=== PATIENT | female | born 1980 | race Caucasian/White ===

== ENCOUNTER 2016-09-06 17:00 | Emergency (ER) | payer MEDICAID ==
[~2016-09-06] VITALS: Ht 160 cm; Wt 64.6 kg
[~2016-09-06 17:00] MED LIST: /BACIOPOI; ADVAIR200 INHALATION; ALBU17IN2; ALBUT0.05 INHALATION; ALBUTEROL INHALATION; AMIT25TA2 PO; AMO500 PO; ATARAX OR; CRES20TA PO; DULO20CA; EPIP0.3I IM; EPIPENAD INJECTION; FLEXERIL; FLEXERIL PO; MOTRIN800 PO; NEBUMIS2; NEXIUM40 PO; REME15TA OR; SERO200T OR; SUDAFED30 PO; TOPI50TA OR; TRAZ50TA; VENTAER INH; VICODIN PO; [UNRECOGNIZED DRUG - OTHER] SQ
[2016-09-06] MEDS ORDERED: NS 1,000 ML IV ONE (17:45)
[2016-09-06] MEDS ORDERED: ONDANSETRON 4MG/2ML VIAL (J2405) IV ONE (17:45)
[2016-09-06] MEDS ORDERED: MORPHINE 2 MG/ML 1ML SYRINGE IV PRN (17:45)
[2016-09-06 18:15] LABS: BASO % 0.4 % (0.0-1.0); EOS # 0.2 K/mm3 (0.0-0.50); EOS % 2.3 % (0.0-3.0); LARGE UNSTAINED CELL # 0.1 K/mm3 (0.0-0.4); LARGE UNSTAINED CELL % 1.4 % (0.0-4.0); LYMPH % 24.7 % (24.0-44.0); MEAN CORPUSCULAR HEMOGLOBIN 28.7 pg (27.0-33.0); MEAN CORPUSCULAR HGB CONC 33.4 g/dl (32.0-36.5); MEAN CORPUSCULAR VOLUME 86.1 fl (80.0-96.0); MONO # 0.5 K/mm3 (0.0-0.8); MONO % 5.9 % (0.0-5.0); NEUTROPHILS # 5.4 K/mm3 (1.8-7.7); NEUTROPHILS % 65.3 % (36.0-66.0); PLATELET COUNT, AUTOMATED 221 k/mm3 (150-450); RED CELL DISTRIBUTION WIDTH 12.8 % (11.5-14.5); WHITE BLOOD COUNT 8.3 K/mm3 (4.0-10.0)
[2016-09-06 18:34] LABS: ALBUMIN 3.8 GM/DL (3.2-5.2); ALBUMIN/GLOBULIN RATIO 1.03 (1.00-1.93); ALKALINE PHOSPHATASE 67 U/L (45-117); ALT/SGPT 19 U/L (12-78); AMYLASE 222 U/L (25-115); ANION GAP 6 MEQ/L (8-16); AST/SGOT 9 U/L (15-37); BILIRUBIN,DIRECT < 0.1 MG/DL (0.0-0.2); BILIRUBIN,TOTAL 0.5 MG/DL (0.2-1.0); BLOOD UREA NITROGEN 14 MG/DL (7-18); CALCIUM LEVEL 8.8 MG/DL (8.5-10.1); CARBON DIOXIDE LEVEL 26 MEQ/L (21-32); CHLORIDE LEVEL 107 MEQ/L (98-107); CREATININE FOR GFR 0.87 MG/DL (0.55-1.02); GLOMERULAR FILTRATION RATE > 60.0 (>60); GLUCOSE, FASTING 89 MG/DL (70-105); POTASSIUM SERUM 3.9 MEQ/L (3.5-5.1); SODIUM LEVEL 139 MEQ/L (136-145); TOTAL PROTEIN 7.5 GM/DL (6.4-8.2)
[2016-09-06] MEDS ORDERED: diphenhydrAMINE INJ 50MG/ML VIAL (J1200) IV STA (18:57)
[2016-09-06] MEDS ORDERED: fentaNYL 100 MCG/2 ML INJECTION (J3010) IV ONE (19:00)
[2016-09-06] MEDS ORDERED: VoLumen 0.1% SUSPENSION 450ML BOTTLE PO ONE ×2 (20:00→21:00)
[2016-09-06 21:39] VITALS: BP 103/76
--- NOTE | 2016-09-06 23:00 | REPUSA ---
CT of the abdomen and pelvis without contrast Clinical statement: Pain. Technique: Multiple axial CT images were obtained from the base of the lungs to the floor of the pelv is utilizing 5 mm axial slices without administration of contrast. Coronal and sagittal reconstructio ns were also obtained. Comparison: 09/27/2015. Findings: Chest: The visualized lung bases are clear. Abdomen: The kidneys are normal in size bilaterally. There is no evidence of hydronephrosis. There is a 5 mm nonobstructing stone in the left kidney. The liver, spleen, pancreas, and adrenal glands are unremarkable. The aorta demonstrates normal caliber and contour. There is no abdominal lymphadenopath y or ascites. Pelvis: The bowel is unremarkable, with no obstructive or inflammatory changes. The urinary bladder i s within normal limits. There is no pelvic lymphadenopathy or ascites. The other pelvic structures ap pear unremarkable. Bones: There are no suspicious osseous abnormalities seen. Impression: 1. No acute findings. No significant changes prior study. 2. Stable nonobstructing left renal nephrolithiasis. 3. No obstructive or inflammatory bowel changes.
== END 2016-09-06 22:45 | disposition left against medical advice (07) ==
LOC: M ED 17:41
DX: R10.9 Unspecified abdominal pain (principal); F32.9 Major depressive disorder, single episode, unspecified; F17.210 Nicotine dependence, cigarettes, uncomplicated; Z91.041 Radiographic dye allergy status; Z88.5 Allergy status to narcotic agent; Z88.8 Allergy status to other drugs, medicaments and biological substances; Z91.040 Latex allergy status; Z91.030 Bee allergy status; Z88.7 Allergy status to serum and vaccine; R56.9 Unspecified convulsions; J45.909 Unspecified asthma, uncomplicated; F41.9 Anxiety disorder, unspecified
CPT/HCPCS: 36415; 74176; 80048; 80076; 81001; 81025; 82150; 83690; 85025; 96374; 96375; 99283; J1200; J2405; J3010

== ENCOUNTER 2016-09-18 14:27 | Emergency (ER) | payer MEDICAID ==
[~2016-09-18] VITALS: Ht 160 cm; Wt 65.3 kg
[2016-09-18] MEDS ORDERED: ONDANSETRON 4MG/2ML VIAL (J2405) IV ONE (16:00)
[2016-09-18] MEDS ORDERED: MORPHINE 4 MG/ML 1ML SYRINGE IV ONE (16:00)
[2016-09-18] MEDS ORDERED: READI-CAT 2 PO ONE ×2 (16:15→17:15)
[2016-09-18 16:21] LABS: BASO % 0.6 % (0.0-1.0); EOS # 0.1 K/mm3 (0.0-0.50); EOS % 1.3 % (0.0-3.0); LARGE UNSTAINED CELL # 0.2 K/mm3 (0.0-0.4); LARGE UNSTAINED CELL % 2.9 % (0.0-4.0); LYMPH # 1.9 K/mm3 (1.5-4.5); LYMPH % 22.8 % (24.0-44.0); MEAN CORPUSCULAR HEMOGLOBIN 28.7 pg (27.0-33.0); MEAN CORPUSCULAR VOLUME 86.9 fl (80.0-96.0); MONO # 0.3 K/mm3 (0.0-0.8); MONO % 4.3 % (0.0-5.0); NEUTROPHILS # 5.1 K/mm3 (1.8-7.7); NEUTROPHILS % 68.1 % (36.0-66.0); PLATELET COUNT, AUTOMATED 260 k/mm3 (150-450); RED CELL DISTRIBUTION WIDTH 12.5 % (11.5-14.5); WHITE BLOOD COUNT 7.5 K/mm3 (4.0-10.0)
[2016-09-18 16:23] LABS: CONTROL LINE UCG INT CTR LINE PRESENT
[2016-09-18 16:44] LABS: ALBUMIN 3.8 GM/DL (3.2-5.2); ALBUMIN/GLOBULIN RATIO 1.06 (1.00-1.93); ALKALINE PHOSPHATASE 84 U/L (45-117); ALT/SGPT 34 U/L (12-78); AMYLASE 62 U/L (25-115); ANION GAP 8 MEQ/L (8-16); AST/SGOT 16 U/L (15-37); BILIRUBIN,DIRECT 0.1 MG/DL (0.0-0.2); BILIRUBIN,TOTAL 0.6 MG/DL (0.2-1.0); BLOOD UREA NITROGEN 8 MG/DL (7-18); CALCIUM LEVEL 8.8 MG/DL (8.5-10.1); CARBON DIOXIDE LEVEL 26 MEQ/L (21-32); CHLORIDE LEVEL 105 MEQ/L (98-107); CREATININE FOR GFR 0.87 MG/DL (0.55-1.02); GLOMERULAR FILTRATION RATE > 60.0 (>60); GLUCOSE, FASTING 88 MG/DL (70-105); POTASSIUM SERUM 3.6 MEQ/L (3.5-5.1); SODIUM LEVEL 139 MEQ/L (136-145); TOTAL PROTEIN 7.4 GM/DL (6.4-8.2)
[2016-09-18] MEDS ORDERED: KETOROLAC 30 MG/ML VIAL (J1885) IV ONE (17:45)
[2016-09-18] MEDS ORDERED: PERCOCET 5MG/325MG TAB PO ONE (19:30)
[2016-09-18 19:34] VITALS: BP 128/82
--- NOTE | 2016-09-18 19:40 | REPUSA ---
Clinical statement: Left flank pain. Technique: Multiple axial CT images were obtained from the base of the lungs to the floor of the pelvis utilizing 5 mm axial slices without administration of contrast. Coronal and sagittal reconstructions were also obtained. Comparison: 09/06/2016. Findings: Chest: The visualized lung bases are clear. Abdomen: The kidneys are normal in size bilaterally. There is no evidence of hydronephrosis. There is a 5 mm nonobstructing stone in the left kidney. The liver, spleen, pancreas, and adrenal glands are unremarkable. The aorta demonstrates normal caliber and contour. There is no abdominal lymphadenopathy or ascites. Pelvis: The bowel is unremarkable, with no obstructive or inflammatory changes. The urinary bladder is within normal limits. There is no pelvic lymphadenopathy or ascites. The other pelvic structures appear unremarkable. Bones: There are no suspicious osseous abnormalities seen. Impression: 1. No acute findings. No significant changes prior study. 2. Stable nonobstructing 5 mm left renal calculus. 3. No obstructive or inflammatory bowel changes.
== END 2016-09-18 20:14 | disposition home or self-care (01) ==
LOC: M ED 15:14
DX: R10.32 Left lower quadrant pain (principal); R56.9 Unspecified convulsions; F41.9 Anxiety disorder, unspecified; F33.9 Major depressive disorder, recurrent, unspecified; N20.0 Calculus of kidney; Z87.19 Personal history of other diseases of the digestive system; T78.40XA Allergy, unspecified, initial encounter; Z87.440 Personal history of urinary (tract) infections
CPT/HCPCS: 74176; 80048; 80076; 81001; 82150; 83690; 84703; 85025; 96374; 96375; 99282; J1885; J2405

== ENCOUNTER 2016-11-03 17:01 | Inpatient (IN) | payer MEDICAID ==
[~2016-11-03] VITALS: Ht 160 cm; Wt 67.6 kg
[2016-11-03] MEDS ORDERED: diphenhydrAMINE INJ 50MG/ML VIAL (J1200) IM STA (17:07)
[2016-11-03] MEDS ORDERED: TIZA2TA PO (17:10)
[2016-11-03] MEDS ORDERED: METOCLOPRAMIDE INJ 10MG/2ML VIAL (J2765) IM ONE (17:15)
[2016-11-03 17:35] LABS: MEAN CORPUSCULAR HEMOGLOBIN 29.8 pg (27.0-33.0); MEAN CORPUSCULAR VOLUME 87.6 fl (80.0-96.0); RED CELL DISTRIBUTION WIDTH 12.5 % (11.5-14.5); WHITE BLOOD COUNT 6.4 K/mm3 (4.0-10.0)
[2016-11-03 18:14] LABS: CONTROL LINE HCG INT CTR LINE PRESENT
[2016-11-03 18:34] LABS: ALBUMIN 4.1 GM/DL (3.2-5.2); ALBUMIN/GLOBULIN RATIO 1.08 (1.00-1.93); ALKALINE PHOSPHATASE 84 U/L (45-117); ALT/SGPT 15 U/L (12-78); ANION GAP 8 MEQ/L (8-16); AST/SGOT 11 U/L (15-37); BILIRUBIN,DIRECT 0.1 MG/DL (0.0-0.2); BILIRUBIN,TOTAL 0.7 MG/DL (0.2-1.0); BLOOD UREA NITROGEN 17 MG/DL (7-18); CALCIUM LEVEL 8.5 MG/DL (8.5-10.1); CARBON DIOXIDE LEVEL 25 MEQ/L (21-32); CHLORIDE LEVEL 105 MEQ/L (98-107); CREATININE FOR GFR 0.97 MG/DL (0.55-1.02); GLOMERULAR FILTRATION RATE > 60.0 (>60); GLUCOSE, FASTING 83 MG/DL (70-105); POTASSIUM SERUM 3.4 MEQ/L (3.5-5.1); SODIUM LEVEL 138 MEQ/L (136-145); TOTAL PROTEIN 7.9 GM/DL (6.4-8.2)
[2016-11-03 19:36] LABS: METHADONE URINE NEGATIVE (NEGATIVE)
[2016-11-03] MEDS ORDERED: MAALOX 30 ML SUSP *UDC PO PRN (22:30)
[2016-11-03] MEDS ORDERED: MOM 30ML SUSPENSION UDC PO PRN (22:30)
[2016-11-03] MEDS ORDERED: traZODone 50 MG TAB PO PRN (22:30)
[2016-11-03 22:50] VITALS: BP 120/67
[2016-11-03] MEDS: ACETAMINOPHEN TAB 650MG DOSE (2X325MG) PO PRN (23:38)
[2016-11-04 06:00] VITALS: BP_DIAS 115
[2016-11-04] MEDS: ACETAMINOPHEN TAB 650MG DOSE (2X325MG) PO PRN (15:16)
[2016-11-04 18:00] VITALS: BP 125/76
[2016-11-04] MEDS: OLANZapine ORAL DISINTEGRATING TAB 5MG PO PRN ×2 (20:24)
[2016-11-04] MEDS: EXCEDRIN MIGRAINE TABLET PO PRN (20:26)
--- NOTE | 2016-11-04 22:08 | HPE ---
DATE OF ADMISSION: 11/03/2016 DATE OF SERVICE: 11/04/2016 HISTORY OF PRESENT ILLNESS: This is a 35-year-old white woman with a longstanding history of psychiatric hospitalizations who was admitted now with thoughts of suiciding on pills. The patient is really stressed out because it seems that her supplemental security income (SSI) is now under review and that her primary doctor feels that she is able to work. She says she has been feeling suicidal for about a week. She also says she has been out of her medications for about eight months because apparently she moved with her mother at one point, and she says she did not have transportation. She is now living with a friend and she is able to borrow his truck to get to appointments, but she is on a waiting list to start psychiatric treatment again. She feels that she needs her medications again. She complains of anxiety, but she says that it is mostly when she gets upset about something that she will get anxious, and she will break into a sweat. Again, she describes feeling depressed but she denies that she is feeling hopeless or helpless at this point. She did mention another stressor which is that she is hoping to be able to go to court and get visitations with her children who apparently are in the custody of her mother. She said that was the reason moved in with her mother before so that she could be near her children. I did not elicit any hypomanic or manic-like symptoms in this patient. It seems that at some point, she was given a diagnosis of bipolar disorder, but it is not clear where exactly this diagnosis came by. PAST PSYCHIATRIC HISTORY: The patient has had multiple psychiatric hospitalizations; the last one was two years ago after she overdosed at [facility]. Currently she has not been on any medications as I had noted above. FAMILY HISTORY: The patient is not aware of any psychiatric illness in the family. SUBSTANCE ABUSE: She denies any problems with alcohol or drugs. MEDICAL HISTORY: She has a history of migraines. ABUSE HISTORY: I did not elicit any abuse history. MENTAL STATUS EXAMINATION: The patient is alert and oriented times three. Eye contact is fair. Psychomotor activity is decreased. There is no formal thought disorder. She states her mood is depressed and anxious. Affect is full range and appropriate. She is not psychotic. She is denying suicidal ideation now. No homicidal ideation. Concentration fair. Memory intact. Insight and judgment poor. REVIEW OF SYSTEMS: VITAL SIGNS: Blood pressure 155/77, pulse 70, temperature 97.3. APPEARANCE: She does not appear to be in any apparent distress. NEUROMUSCULAR: The patient's gait is normal and there are no involuntary movements noted. All other systems were reviewed and found to be negative. DIAGNOSES: 1. Other specified depressive disorder. 2. Migraine headaches. TREATMENT PLAN: At this point, we will start the patient on some Effexor XR 75 mg every morning. We will also give her Seroquel 50 mg at bedtime. The Seroquel hopefully will help her sleep better because she says she has difficulty sleeping because she has racing thoughts. We will continue to monitor her for continued resolution of suicidal ideation, and the plan will be to discharge the patient with appropriate followup when stable.
[2016-11-04] MEDS: QUEtiapine FUMARATE 50 MG TAB PO SCH (23:02)
--- NOTE | 2016-11-05 04:39 | HPE ---
DATE OF ADMISSION: 11/03/2016 HISTORY OF PRESENT ILLNESS: Please refer to psychiatric history and evaluation for further details on this admission. This examination and history is intended for medical issues, which may need treatment, followup or consult on this 35-year-old female. PRIMARY CARE PROVIDER: VIGNESH Koehler, [facility]. ALLERGIES: ATARAX, CODEINE, LEXAPRO, CELEXA, IODINE, LASIX, TETANUS TOXOID, CITALOPRAM, CONTRAST MEDIA, and she is allergic to bees. SOCIAL HISTORY: She lives with a friend. She has three children. Two boys live with her mother and one daughter lives with the daughter's father. She does not smoke cigarettes. She does not drink alcohol. She does not use recreational drugs. HOME MEDICATIONS: - tizanidine 2 mg by mouth three times a day as needed for muscle spasm PAST MEDICAL HISTORY: 1. Macular degeneration. 2. Left eye retinal disease. She wears glasses. 3. History of asthma. 4. History of pancreatitis. 5. History of migraines. 6. She is also being worked up by her primary care provider for an enlarged liver. PAST SURGICAL HISTORY: 1. Foot surgery on the right times two, on the left times five. 2. Laser surgery to left eye. 3. Cholecystectomy. 4. Tubal ligation. FAMILY HISTORY: Noncontributory. LABORATORY STUDIES: CBC was normal. Sodium 148, potassium 3.4, chloride 105, CO2 25, BUN 17, creatinine 0.97. Toxicology was negative except for a salicylate level of 5.7. REVIEW OF SYSTEMS: 10-system review was done. Her main complaint was of headache. Excedrin Migraine has been ordered. PHYSICAL EXAMINATION: 35-year-old cooperative female. Height 63 inches, weight 62.8 kg, body mass index (BMI) 24.5. Blood pressure 120/67, pulse 92, respirations 16, temperature 98.4. The patient is alert and oriented times three. Pupils equal and react to light. Extraocular muscles intact. Cornea and sclerae clear. Conjunctivae were normal. No facial asymmetry. Pharynx, tongue and gums pink and moist. Tongue is midline. Neck is supple without lymphadenopathy. No thyromegaly, no goiter. Carotids 2+ without bruit. Chest clear to auscultation without wheeze or retraction. Heart is regular. Abdomen is benign. Bowel sounds positive. Genitourinary/rectal: Not done. Extremities show equal strength, full range of motion. No cyanosis, clubbing or edema. Peripheral pulses equal and palpable bilaterally. Skin is warm and dry. IMPRESSION/PLAN: 1. Psychiatric plan per psychiatry. 2. History of asthma, stable. 3. Per patient, enlarged liver, is following with VIGNESH Koehler, at [facility], recommended to keep followup. Liver function tests (LFTs) were normal. 4. Slightly low potassium. Recheck in the morning. ADDENDUM: As I was dictating this, the nurses came up and told me that after she saw me, she had been rubbing the backs of her hands and arms and I assessed them. Slightly reddened area on the back of each hand and on the lower forearm. Nothing open. No abrasion noted.
[2016-11-05 06:29] VITALS: BP 110/55
[2016-11-05] MEDS: VENLAFAXINE **XR** 75MG CAPSULE PO SCH (08:07)
[2016-11-05] MEDS: EXCEDRIN MIGRAINE TABLET PO PRN (09:23)
[2016-11-05] MEDS: OLANZapine ORAL DISINTEGRATING TAB 5MG PO PRN ×2 (09:23→21:05)
[2016-11-05 09:43] LABS: ANION GAP 7 MEQ/L (8-16); BLOOD UREA NITROGEN 12 MG/DL (7-18); CARBON DIOXIDE LEVEL 27 MEQ/L (21-32); CHLORIDE LEVEL 109 MEQ/L (98-107); CREATININE FOR GFR 0.87 MG/DL (0.55-1.02); GLOMERULAR FILTRATION RATE > 60.0 (>60); GLUCOSE, FASTING 81 MG/DL (70-105); POTASSIUM SERUM 3.7 MEQ/L (3.5-5.1); SODIUM LEVEL 143 MEQ/L (136-145)
[2016-11-05 18:00] VITALS: BP 104/65
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
[2016-11-05] MEDS: ACETAMINOPHEN TAB 650MG DOSE (2X325MG) PO PRN (20:52)
[2016-11-05] MEDS: QUEtiapine FUMARATE 50 MG TAB PO SCH (21:04)
[2016-11-05] MEDS: RAMELTEON 8 MG TAB (ROZEREM) PO SCH (21:25)
[2016-11-06 06:50] VITALS: BP 94/56
[2016-11-06] MEDS: OLANZapine ORAL DISINTEGRATING TAB 5MG PO PRN ×2 (08:01→21:20)
[2016-11-06] MEDS: VENLAFAXINE **XR** 75MG CAPSULE PO SCH (08:01)
[2016-11-06 18:00] VITALS: BP 126/68
[2016-11-06] MEDS: EXCEDRIN MIGRAINE TABLET PO PRN (18:27)
--- NOTE | 2016-11-06 20:47 | IPN ---
DATE: 11/06/2016 35-year-old female with a history of unspecified depressive disorder, who was admitted to the inpatient mental health unit on 11/03/2016. The patient reported feeling tired because she is adjusting to being on medications again. The staff reported that she slept all day and did not attend any groups. MENTAL STATUS EXAMINATION: The patient was seen dressed in hospital clothes, disheveled, sleepy with good eye contact, slightly uncooperative with the interview. She was alert and oriented times three. Her mood and affect were irritable, angry, depressed. Her speech was sparse but not tangential and not circumstantial. Her thought process is intact. Her thought content is about the problems that she has with her mother over the custody of her children. She denies suicidal ideation, denied homicidal ideation, and denied auditory and visual hallucinations. She has not been seen responding to internal stimuli. She denies delusional thoughts, but certainly she is a little hypervigilant. Her attention and concentration are fair. Her recent and remote memory are intact. Her fund of knowledge is poor. Her insight and judgment are poor. Her impulse control is fair. DIAGNOSES: 1. Unspecified depressive disorder. 2. Migraine headaches. MANAGEMENT PLAN: The patient will continue on current medications on olanzapine 5 mg every four hours as needed for anxiety or agitation, Seroquel 50 mg by mouth, Rozerem 8 mg by mouth at night for sleep. She is currently on venlafaxine and it was increased to 150 mg by mouth in the morning this morning. The patient has very low energy levels and hopefully with the combination of Seroquel and venlafaxine she will feel better, less depressed, less irritable. Her irritability is most likely due to stress and depression. Venlafaxine was increased today to 150 mg and hopefully it will be able to be increased to 300 mg before she gets discharged. We will continue to monitor for behavioral and mood swings/mood changes. Will follow up. MERVAT
[2016-11-06] MEDS: QUEtiapine FUMARATE 50 MG TAB PO SCH (21:20)
[2016-11-06] MEDS: RAMELTEON 8 MG TAB (ROZEREM) PO SCH (22:11)
[2016-11-06] MEDS ORDERED: diphenhydrAMINE 25 MG CAP PO ONE (22:30)
[2016-11-07 06:02] VITALS: BP 129/80
[2016-11-07] MEDS: OLANZapine ORAL DISINTEGRATING TAB 5MG PO PRN ×2 (06:39→20:54)
[2016-11-07] MEDS: VENLAFAXINE **XR** 75MG CAPSULE PO SCH (08:01)
[2016-11-07] MEDS: MUPIROCIN 2% OINT 22 GM TUBE TOP SCH ×2 (11:37→21:00)
[2016-11-07] MEDS: EXCEDRIN MIGRAINE TABLET PO PRN (13:42)
[2016-11-07 18:00] VITALS: BP 94/50
[2016-11-07] MEDS: SUMAtriptan SUCCINATE 25 MG TAB PO PRN ×2 (18:46→20:53)
--- NOTE | 2016-11-07 19:22 | MHIPNPDOC ---
[facility] Progress Note Progress Note DATE OF SERVICE: 11/07/16 INTERVAL HISTORY: Medication Side effects: Denies medication side effects Behavior: Has refused to attend groups, blames it and migraine headaches and because she doesn't get to go to the group she likes, because she has been told that her name is on the list and she has to go to the "talk group" instead of the group for people get to paint and draw. Isolated to her room, not engaging, not interacting with peers or staff Group Attendance: She has not been attending groups has been isolated to her room, not interacting with peers or staff Psychiatric Symptom change: She continues to be irritable. VITAL SIGNS: See below. NEW TEST RESULTS: See below CURRENT MEDICATIONS: See below. MENTAL STATUS EXAMINATION: General: Alert, slightly uncooperative, guarded, good eye contact Speech: And normal Thought processes: Intact Thought content: She is persevering about her migraine headaches and complaining because they gave her Imitrex and she states this medication doesn' t work for her. Yesterday she told this functional tester typewriters that they have given her a medication that worked well for her migraine headaches but she couldn't recall his name and she refused to receive any other medication because she said none of the previous medications including Imitrex have worked for her. Today she blames it on migraine headaches not been able to get up from bed, attend groups and interact with people at the inpatient mental health unit. Abstract reasoning, and computation: Poor. Description of associations: Not loose Description of abnormal or psychotic thoughts: She is not delusional, she is not responding to internal stimuli, she denies auditory and visual hallucinations, denies suicidal and homicidal ideation. Judgment: Poor Insight: Poor Orientation: Oriented 3 Recent and remote memory: Intact Attention span and concentration: Fair Fund of knowledge: Poor Mood: Irritable Affect: Irritable, angry DIAGNOSES: 1. Unspecified depressive disorder. 2. Rule out personality disorder. 3. Rule out intellectual disability ASSESSMENT: Patient continues to be irritable, anxious and depressed. Seroquel was increased today to 50 mg by mouth twice a day and will make other medication adjustments to help her overcome her symptoms. She was educated about the importance of attending groups and about sleep hygiene. She won't be able to fall asleep at night if she sleeps during the day. Her judgment and insight are very limited. MANAGEMENT PLAN: Medications: Venlafaxine 150 mg by mouth twice a day, Seroquel 50 mg by mouth twice a day, Rozerem 8 mg by mouth daily at bedtime, Zyprexa 5 mg every 4 hours when necessary for anxiety and agitation Psychotherapy: Will continue to encourage to attend groups Social: Hasn't been interactive with staff or peers Misc: -- Disposition: She needs to stay at the inpatient mental health unit until she becomes less depressed and able to function properly. She is not suicidal, she is not a threat to herself or others. TIME SPENT: minutes. Vital Signs Vital Signs Date Time Temp Pulse Resp B/P (MAP) Pulse Ox O2 Delivery O2 Flow Rate FiO2 11/07/16 06:02 97.7 82 18 129/80 (96) 11/04/16 06:00 18 Current Medications Current Medications Acetaminophen (Tylenol Tab) 650 mg Q6HP PRN PO HEADACHE or DISCOMFORT Last administered on 11/05/16 20:52; Start 11/03/16 at 22:30; Stop 12/03/16 at 22:29 Acetaminophen/ Aspirin/Caffeine (Excedrin Migraine) 1 ea Q4HP PRN PO HEADACHE Last administered on 11/07/16 13:42; Start 11/04/16 at 19:45; Stop 12/04/16 at 19: 44 Al Hydrox/Mg Hydrox/Simethicone (Mylanta) 30 ml Q4HP PRN PO HEARTBURN/ INDIGESTION; Start 11/03/16 at 22:30; Stop 12/03/16 at 22:29 Diphenhydramine HCl (Benadryl) 50 mg STAT STAT IM Last administered on 17:39; Start 11/03/16 at 17:07; Stop 11/03/16 at 17:08; Status DC Home Med (Med Rec Complete!) ASDIRECTED XX ; Start 11/03/16 at 18:15; Stop at 18:17; Status DC Magnesium Hydroxide (Milk Of Magnesia) 30 ml DAILYPRN PRN PO CONSTIPATION; Start 11/03/16 at 22:30; Stop 12/03/16 at 22:29 Mupirocin (Bactroban 2% Ointment) 1 dose BID TOP Last administered on 11/07/16 11:37; Start 11/07/16 at 09:00; Stop 12/07/16 at 08:59 Olanzapine (ZyPREXA ZYDIS) 5 mg Q4HP PRN PO ANXIETY/AGITATION Last administered on 11/07/16 06:39; Start 11/03/16 at 23:00; Stop 12/03/16 at 22:59 Quetiapine Fumarate (SEROquel) 50 mg BID PO ; Start 11/07/16 at 21:00; Stop at 20:59; Status UNV Quetiapine Fumarate (SEROquel) 50 mg QHS PO Last administered on 11/06/16 21:20 ; Start 11/04/16 at 21:00; Stop 11/07/16 at 19:05; Status DC Ramelteon (Rozerem) 8 mg QHS PO Last administered on 11/06/16 22:11; Start 11/05 at 21:00; Stop 12/05/16 at 20:59 Sumatriptan Succinate (Imitrex) 50 mg Q2HP PRN PO HEADACHE Last administered on 11/07/16 18:46; Start 11/07/16 at 18:15; Stop 12/07/16 at 18:14 Trazodone HCl (Desyrel) 50 mg QHSP PRN PO INSOMNIA Last administered on 22:52; Start 11/03/16 at 22:30; Stop 11/05/16 at 16:16; Status DC Venlafaxine HCl (Effexor Xr) 75 mg QAM PO Last administered on 11/06/16 08: 01; Start 11/05/16 at 09:00; Stop 11/06/16 at 16:15; Status DC Venlafaxine HCl (Effexor Xr) 150 mg QAM PO Last administered on 11/07/16 08 :01; Start 11/07/16 at 09:00; Stop 12/07/16 at 08:59 Allergies Coded Allergies: Aripiprazole (Verified Allergy, Unknown, 09/04/12) Bee Venom (Verified Allergy, Unknown, BEE STINGS, 09/04/12) Citalopram (Verified Allergy, Unknown, 09/04/12) Codeine (Verified Allergy, Unknown, PATIENT STATES SHE TAKES PERCOCET WITHOUT PROBLEM, 09/04/12) Contrast Media (Verified Allergy, Unknown, IODINE CONTRAST=HIVES, 06/08/10) Escitalopram (Verified Allergy, Unknown, HIVES AND THROAT CONSTRICTS, ) Hydroxyzine (Verified Allergy, Unknown, 09/04/12) Iodine (Verified Allergy, Unknown, HIVES AND THROAT CONSTRICTS, 09/04/12) Latex (Verified Allergy, Unknown, HIVES AND THROAT CONSTRICTS, 09/04/12) Paroxetine (Verified Allergy, Unknown, 09/04/12) Penicillins (Unverified Allergy, Unknown, 08/04/15) Risperidone (Verified Allergy, Unknown, 09/04/12) Tetanus Toxoid (Verified Allergy, Unknown, HIVES AND THROAT CONSTRICTS, 09/04/12) Valproic Acid (Verified Allergy, Unknown, 09/04/12) Zolpidem (Verified Allergy, Unknown, 09/04/12) HERNAN MATOS MD Nov 07, 2016 19:21
[2016-11-07] MEDS: QUEtiapine FUMARATE 50 MG TAB PO SCH (20:53)
[2016-11-07] MEDS ORDERED: QUEtiapine FUMARATE 25 MG TAB PO SCH (21:00)
[2016-11-07] MEDS: RAMELTEON 8 MG TAB (ROZEREM) PO SCH (21:43)
[2016-11-08] MEDS: SUMAtriptan SUCCINATE 25 MG TAB PO PRN ×3 (04:48→21:18)
[2016-11-08 06:30] VITALS: BP 111/77
[2016-11-08] MEDS: QUEtiapine FUMARATE 50 MG TAB PO SCH ×2 (08:22→21:18)
[2016-11-08] MEDS: VENLAFAXINE **XR** 75MG CAPSULE PO SCH ×2 (08:22→21:17)
[2016-11-08] MEDS: MUPIROCIN 2% OINT 22 GM TUBE TOP SCH ×2 (08:22→21:00)
[2016-11-08] MEDS: OLANZapine ORAL DISINTEGRATING TAB 5MG PO PRN ×3 (08:24→19:18)
[2016-11-08] MEDS ORDERED: VENL75CA PO (13:03)
[2016-11-08] MEDS ORDERED: QUET5TAB PO (13:03)
[2016-11-08] MEDS ORDERED: OLAN5ZYD PO (13:03)
--- NOTE | 2016-11-08 13:38 | MHIPNPDOC ---
[facility] Progress Note Progress Note DATE OF SERVICE: 11/08/16 INTERVAL HISTORY: Medication Side effects: Daytime sleepiness caused by having her take Seroquel during the day. She requested to have the whole dose administered at bedtime. Behavior: Continues to be reluctant to attend groups, isolated to her room, not interacting with peers or staff Group Attendance: She hasn't been attending groups Psychiatric Symptom change: Her mood and affect are better today. She she has been able to laugh, joke and smile. She is not irritable anymore. VITAL SIGNS: See below. NEW TEST RESULTS: See below CURRENT MEDICATIONS: See below. MENTAL STATUS EXAMINATION: General: Alert, cooperative, good eye contact. Speech: Normal Thought processes: Intact Thought content: Negative for homicidal ideation, negative for suicidal ideation , negative for delusions negative for depressive thoughts and negative for auditory or visual hallucinations, negative for obsessions and compulsions Abstract reasoning, and computation: Fair Description of associations: Not loose Description of abnormal or psychotic thoughts: Denies suicidal ideation, denies homicidal ideation, denies auditory and visual hallucinations, denies delusional thoughts. Judgment: Improving Insight: Improving Orientation: Oriented 3 Recent and remote memory: Intact Attention span and concentration: Fair Fund of knowledge: Poor Mood: Brighter Affect: Euthymic DIAGNOSES: 1. Major depressive disorder, recurrent, moderate ASSESSMENT: Patient shows she has improved since she came in. Initially she was extremely irritable with angry mood. Today she was seen more pleasant, more engaging, happy. If she continues to be stable she will be discharged tomorrow. She wont be discharged on Imitrex because she has stated that this medication is not helping her with her migraine headaches and that she had received that in the past and it never helped her, besides it it could result in an undesirable interaction with her antidepressant. MANAGEMENT PLAN: Medications: Venlafaxine 150 mg by mouth twice a day, Seroquel 150 mg by mouth daily at bedtime. She continues to be on Zyprexa 5 mg by mouth daily at bedtime when necessary for anxiety and agitation. Psychotherapy: She doesn't want to attend groups Social: She has not been sociable or interactive with peers or staff Misc: --- Disposition: She will be discharged home tomorrow if she continues to be stable. TIME SPENT: 25 minutes. Vital Signs Vital Signs Date Time Temp Pulse Resp B/P (MAP) Pulse Ox O2 Delivery O2 Flow Rate FiO2 11/08/16 06:30 97.6 111 22 111/77 (88) 11/04/16 06:00 18 Current Medications Current Medications Acetaminophen (Tylenol Tab) 650 mg Q6HP PRN PO HEADACHE or DISCOMFORT Last administered on 11/05/16 20:52; Start 11/03/16 at 22:30; Stop 12/03/16 at 22:29 Acetaminophen/ Aspirin/Caffeine (Excedrin Migraine) 1 ea Q4HP PRN PO HEADACHE Last administered on 11/07/16 13:42; Start 11/04/16 at 19:45; Stop 12/04/16 at 19: 44 Al Hydrox/Mg Hydrox/Simethicone (Mylanta) 30 ml Q4HP PRN PO HEARTBURN/ INDIGESTION; Start 11/03/16 at 22:30; Stop 12/03/16 at 22:29 Diphenhydramine HCl (Benadryl) 50 mg STAT STAT IM Last administered on 17:39; Start 11/03/16 at 17:07; Stop 11/03/16 at 17:08; Status DC Home Med (Med Rec Complete!) ASDIRECTED XX ; Start 11/03/16 at 18:15; Stop at 18:17; Status DC Magnesium Hydroxide (Milk Of Magnesia) 30 ml DAILYPRN PRN PO CONSTIPATION; Start 11/03/16 at 22:30; Stop 12/03/16 at 22:29 Mupirocin (Bactroban 2% Ointment) 1 dose BID TOP Last administered on 11/08/16 08:22; Start 11/07/16 at 09:00; Stop 12/07/16 at 08:59 Olanzapine (ZyPREXA ZYDIS) 5 mg Q4HP PRN PO ANXIETY/AGITATION Last administered on 11/08/16 08:24; Start 11/03/16 at 23:00; Stop 12/03/16 at 22:59 Quetiapine Fumarate (SEROquel) 50 mg BID PO Last administered on 11/08/16 08:22 ; Start 11/07/16 at 21:00; Stop 11/08/16 at 11:52; Status DC Quetiapine Fumarate (SEROquel) 50 mg QHS PO Last administered on 11/06/16 21:20 ; Start 11/04/16 at 21:00; Stop 11/07/16 at 19:05; Status DC Quetiapine Fumarate (SEROquel) 75 mg QHS PO Last administered on 11/07/16 20:51 ; Start 11/07/16 at 21:00; Stop 11/08/16 at 11:54; Status DC Quetiapine Fumarate (SEROquel) 150 mg QHS PO ; Start 11/08/16 at 21:00; Stop 12/08 at 20:59 Ramelteon (Rozerem) 8 mg QHS PO Last administered on 11/07/16 21:43; Start 11/05 at 21:00; Stop 11/08/16 at 11:51; Status DC Sumatriptan Succinate (Imitrex) 50 mg Q2HP PRN PO HEADACHE Last administered on 11/08/16 08:22; Start 11/07/16 at 18:15; Stop 12/07/16 at 18:14 Trazodone HCl (Desyrel) 50 mg QHSP PRN PO INSOMNIA Last administered on 22:52; Start 11/03/16 at 22:30; Stop 11/05/16 at 16:16; Status DC Venlafaxine HCl (Effexor Xr) 75 mg QAM PO Last administered on 11/06/16 08: 01; Start 11/05/16 at 09:00; Stop 11/06/16 at 16:15; Status DC Venlafaxine HCl (Effexor Xr) 150 mg BID PO ; Start 11/08/16 at 21:00; Stop at 08:59; Status UNV Venlafaxine HCl (Effexor Xr) 150 mg QAM PO Last administered on 11/08/16 08 :22; Start 11/07/16 at 09:00; Stop 11/08/16 at 11:55; Status DC Allergies Coded Allergies: Aripiprazole (Verified Allergy, Unknown, 09/04/12) Bee Venom (Verified Allergy, Unknown, BEE STINGS, 09/04/12) Citalopram (Verified Allergy, Unknown, 09/04/12) Codeine (Verified Allergy, Unknown, PATIENT STATES SHE TAKES PERCOCET WITHOUT PROBLEM, 09/04/12) Contrast Media (Verified Allergy, Unknown, IODINE CONTRAST=HIVES, 06/08/10) Escitalopram (Verified Allergy, Unknown, HIVES AND THROAT CONSTRICTS, ) Hydroxyzine (Verified Allergy, Unknown, 09/04/12) Iodine (Verified Allergy, Unknown, HIVES AND THROAT CONSTRICTS, 09/04/12) Latex (Verified Allergy, Unknown, HIVES AND THROAT CONSTRICTS, 09/04/12) Paroxetine (Verified Allergy, Unknown, 09/04/12) Penicillins (Unverified Allergy, Unknown, 08/04/15) Risperidone (Verified Allergy, Unknown, 09/04/12) Tetanus Toxoid (Verified Allergy, Unknown, HIVES AND THROAT CONSTRICTS, 09/04/12) Valproic Acid (Verified Allergy, Unknown, 09/04/12) Zolpidem (Verified Allergy, Unknown, 09/04/12) HERNAN MATOS MD Nov 08, 2016 13:38
[2016-11-08] MEDS: EXCEDRIN MIGRAINE TABLET PO PRN (14:45)
[2016-11-08 18:26] VITALS: BP 120/78
[2016-11-08] MEDS ORDERED: HALOPERIDOL 10 MG TAB PO STA (21:40)
[2016-11-08] MEDS ORDERED: diphenhydrAMINE 50 MG CAP PO STA (21:40)
[2016-11-08] MEDS ORDERED: LORazepam 2 MG TAB PO STA (21:40)
[2016-11-09 07:14] VITALS: BP 112/55
[2016-11-09] MEDS: VENLAFAXINE **XR** 75MG CAPSULE PO SCH ×2 (09:29→22:07)
[2016-11-09] MEDS: MUPIROCIN 2% OINT 22 GM TUBE TOP SCH ×2 (09:31→21:00)
[2016-11-09] MEDS: OLANZapine ORAL DISINTEGRATING TAB 5MG PO PRN ×3 (09:56→19:04)
[2016-11-09] MEDS: SUMAtriptan SUCCINATE 25 MG TAB PO PRN ×2 (12:14→14:39)
[2016-11-09 18:00] VITALS: BP 129/80
[2016-11-09] MEDS: QUEtiapine FUMARATE 50 MG TAB PO SCH (22:07)
--- NOTE | 2016-11-09 22:42 | IPN ---
DATE: 11/09/2016 Evaluated 35-year-old female with history of major depressive disorder who was admitted last weekend. The patient reported on admission that she has been without her medications for a long time and wanted to start her treatment again and get stabilized, because she felt depressed. She stated that she was suicidal over several problems that she has been having with her mother, because her mother has the custody of her children. The patient also reported being very stressed out, because her supplemental security income (SSI) currently under review by her primary care provider, who has suggested to her that she should go back to work. The patient has been taking her current medications. Those were the medications that she was with before she admitted and that she had responded well in the past. Those are, venlafaxine 150 mg by mouth twice a day, quetiapine, or Seroquel, 150 mg by mouth at bedtime. She is also taking olanzapine Zydis 5 mg by mouth every 4 hours as needed for anxiety and agitation. Today, the patient reported that she has felt very stressed out yesterday, because she had a telephone conversation with her mother, and she became very angry. For that reason, she started hurting herself, scratching her arms and knuckles until she bled. The patient also said to this director underwriter sales yesterday that she did not want to leave, that she wanted to stay over the weekend, so it is suspected that the patient was afraid of leaving the inpatient mental health unit. Perhaps she was afraid of being alone, or perhaps she was afraid of getting into an argument with relatives, most likely her mother. 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 That is what she likes to do, and it is not a stable kind of work. Her income is very limited, and she has difficulties seeing her children and struggling with financial problems. She was told that because she was unstable, she was going to remain at the inpatient mental health unit, but she was told that she has to attend groups, because during the last couple of days, since her admission, she remains in her room without going to groups. After she heard this, then she kept telling staff that she was leaving today. She was told once again that she was not going to be leaving, because it is safer for her to stay 2 more days, and make sure that when she is discharged on Saturday, she is going to be fine. MENTAL STATUS EXAMINATION: Her speech sparse, not fluent. She was seen with better hygiene and better eye contact compared to when she was admitted. Her language skills are limited. Her thought process is irrational. Her thought content is redundant about the problems that she has with her mother, because mother does not let her visit her children. Her abstract reasoning and computation are poor. Description of associations: She has no loosening of associations. Description of abnormal or psychotic thoughts: She denies suicidal ideation. Denies homicidal ideation. Denies auditory and visual hallucinations and denies persecutory or paranoid delusions, but she does not seem to be able to function in society, because her thoughts are not mature enough, and so is her attitude. She acts in an immature way. Her judgment is poor. Her insight is poor. She is oriented times three. Her recent and remote memory is fair. Her attention span and concentration are limited. Her language is fair. Fund of knowledge is poor. Her mood is anxious, and her affect is anxious, congruent to mood. DIAGNOSES: 1. Major depressive disorder, recurrent. 2. Intellectual disability, mild. ASSESSMENT: The patient needs to be stable to be able to be discharged from the inpatient mental health unit. If she continues to comply with medications and she is observed in a better mood and affect with better judgment and insight, she will be discharged on Saturday. She will continue on current medications. TIME SPENT: 20 minutes.
[2016-11-10] MEDS: EXCEDRIN MIGRAINE TABLET PO PRN (03:27)
[2016-11-10] MEDS: SUMAtriptan SUCCINATE 25 MG TAB PO PRN ×3 (03:29→17:59)
[2016-11-10 06:00] VITALS: BP 101/50
[2016-11-10] MEDS: OLANZapine ORAL DISINTEGRATING TAB 5MG PO PRN ×3 (06:03→20:11)
[2016-11-10 08:03] VITALS: BP 133/91
[2016-11-10] MEDS: MUPIROCIN 2% OINT 22 GM TUBE TOP SCH ×2 (08:12→21:16)
[2016-11-10] MEDS: VENLAFAXINE **XR** 75MG CAPSULE PO SCH ×2 (08:12→21:15)
[2016-11-10] MEDS: ACETAMINOPHEN TAB 650MG DOSE (2X325MG) PO PRN (08:44)
[2016-11-10] MEDS ORDERED: diphenhydrAMINE 50 MG CAP PO ONE (10:45)
[2016-11-10] MEDS ORDERED: HALOPERIDOL 2 MG TAB PO ONE (11:00)
[2016-11-10 12:33] VITALS: BP 131/87
[2016-11-10 18:00] VITALS: BP 106/68
[2016-11-10 20:54] VITALS: BP 119/72
[2016-11-10] MEDS: QUEtiapine FUMARATE 50 MG TAB PO SCH (21:15)
[2016-11-10] MEDS ORDERED: LORazepam 0.5 MG TAB PO ONE (23:00)
[2016-11-11 06:00] VITALS: BP 97/66
[2016-11-11] MEDS: OLANZapine ORAL DISINTEGRATING TAB 5MG PO PRN ×3 (08:15→20:58)
[2016-11-11] MEDS: VENLAFAXINE **XR** 75MG CAPSULE PO SCH ×2 (08:15→20:58)
[2016-11-11] MEDS: SUMAtriptan SUCCINATE 25 MG TAB PO PRN ×3 (08:15→20:59)
[2016-11-11 08:19] VITALS: BP 109/64
[2016-11-11] MEDS: MUPIROCIN 2% OINT 22 GM TUBE TOP SCH ×2 (09:00→21:00)
[2016-11-11 09:55] VITALS: BP 119/68
[2016-11-11] MEDS ORDERED: HALOPERIDOL 2 MG TAB PO ONE (11:00)
[2016-11-11 14:10] VITALS: BP 128/78
[2016-11-11] MEDS ORDERED: LORazepam 0.5 MG TAB PO ONE ×2 (16:00→21:45)
[2016-11-11 18:00] VITALS: BP 121/68
[2016-11-11 18:02] VITALS: BP 111/72
[2016-11-11] MEDS: QUEtiapine FUMARATE 50 MG TAB PO SCH (20:58)
[2016-11-12 06:13] VITALS: BP 96/55
[2016-11-12] MEDS: OLANZapine ORAL DISINTEGRATING TAB 5MG PO PRN (08:22)
[2016-11-12] MEDS: MUPIROCIN 2% OINT 22 GM TUBE TOP SCH (08:23)
[2016-11-12] MEDS: VENLAFAXINE **XR** 75MG CAPSULE PO SCH (08:23)
[2016-11-12] MEDS: SUMAtriptan SUCCINATE 25 MG TAB PO PRN (08:44)
--- NOTE | 2016-11-12 14:50 | MHDSPDOC ---
[facility] Discharge Summary Discharge Summary DATE OF ADMISSION: Nov 03, 2016 at 19:21 DATE OF DISCHARGE: Nov 12, 2016 at 11:00 DISCHARGE DIAGNOSES: 1. Major Depressive disorder, moderate 2. Intellectual disability 3. Borderline Personality Traits REASON FOR ADMISSION: Patient came to the emergency room because she felt suicidal and had been scratching up her arms and hands until they bled. She reported feeling upset with her mother because she has custody of her children and she has not been able to see them. She also said her Outpatient Provider told her that her SSI was under review because he thought she could work and this contributed to stress her out. She also reported she had been out of her medications for 8 months and she wanted to get back on them. CONSULTANTS INVOLVED: None TREATMENT AND PROGRESS ON THE UNIT : The patient started using her previous medications, Venlafaxine 150 mgs. PO BID and Trazodone 50 mgs. PO QHS for sleep. She also took Zyprexa 5 mgs. PO q4hrs PRN for anxiety/agitation. After six days of being on medications, her mood and affect improved. she was told she was going to be discharged but she became too stressed out because of this ans she started hurting herself again by scratching her arms and hands. The discharge was cancelled and she was kept over the weekend. She kept hurting herself, because she has to go to Court next Saturday and she couldn't cope with stress other than with medications. She denied suicidal and homicidal ideation, denied hallucinations and denied delusional thoughts. She was offered the possibility of going to [place], because this typewriter assembly and parts inspector and Costume Maker explained to her that being on day 10 of hospitalization, she probably would need a higher level of care and longer hospitalization and this couldn't be done here, but she could go to [place]. She declined. HOSPITAL COURSE: As above DISCHARGE ASSESSMENT: Pt. is not in danger to self or others. she is not suicidal or homicidal. She's not psychotic. She can de discharged. She will go to her friend's house and he already knows she's been discharged. He has not voiced concerns. MENTAL STATUS EXAMINATION ON DISCHARGE: Patient is a 36-year old female, who is alert, guarded, with good eye contact, good hygiene, looking older than her stated age. Speech is Normal. Language skills are Fair. Thought processes including: Intact. Thought content: Perseveres about the ongoing problem she has with mother regarding her children's custody. Abstract reasoning, and computation: Limited. Description of associations: Not loose. Description of abnormal or psychotic thoughts: Not selusional, not having auditory or visual hallucinations, not homicidal and not suicidal. Judgment: Improved. Insight: Improved. Orientation to Oriented x 3. Recent and remote memory: Intact. Attention span and concentration: Fair. Language: Normal. Fund of knowledge: Limited. Mood: "I'm O.K. I'll go home". Affect: Euthymic. MEDICATIONS ON DISCHARGE: - Venlafaxine 150 mgs. Po BID for depression and anxiety.. - Seroquel 150 mgs. PO QHS - Zyprexa 5 mgs. Q4HPRN for anxiety/agitation. PLAN/FOLLOWUP ARRANGEMENTS: Pt. will f/u as an outpatient at the [facility] clinic. The amount of time spent in the coordination of care for this patient was approximately 20 minutes. Vital Signs/I&Os Vital Signs Date Time Temp Pulse Resp B/P (MAP) Pulse Ox O2 Delivery O2 Flow Rate FiO2 11/12/16 06:13 98.2 78 18 96/55 (69) 11/10/16 20:54 98 Room Air Medications Scheduled Quetiapine Fumerate (Quetiapine Fumarate) 50 Mg Tab, 150 MG PO QHS for MOOD/ INSOMNIA, #21 Venlafaxine HCl (Venlafaxine HCl ER) 75 Mg Cap, 150 MG PO BID for MOOD, #28 Scheduled PRN Olanzapine (Olanzapine Odt) 5 Mg Tab, 5 MG PO Q4HP PRN for ANXIETY/AGITATION, # 20 Tizanidine HCl (Tizanidine HCl) 2 Mg Tab, 2 MG PO TID PRN for MUSCLE SPASMS, ( Reported) Allergies Coded Allergies: Aripiprazole (Verified Allergy, Unknown, 09/04/12) Bee Venom (Verified Allergy, Unknown, BEE STINGS, 09/04/12) Citalopram (Verified Allergy, Unknown, 09/04/12) Codeine (Verified Allergy, Unknown, PATIENT STATES SHE TAKES PERCOCET WITHOUT PROBLEM, 09/04/12) Contrast Media (Verified Allergy, Unknown, IODINE CONTRAST=HIVES, 06/08/10) Escitalopram (Verified Allergy, Unknown, HIVES AND THROAT CONSTRICTS, ) Hydroxyzine (Verified Allergy, Unknown, 09/04/12) Iodine (Verified Allergy, Unknown, HIVES AND THROAT CONSTRICTS, 09/04/12) Latex (Verified Allergy, Unknown, HIVES AND THROAT CONSTRICTS, 09/04/12) Paroxetine (Verified Allergy, Unknown, 09/04/12) Penicillins (Unverified Allergy, Unknown, 08/04/15) Risperidone (Verified Allergy, Unknown, 09/04/12) Tetanus Toxoid (Verified Allergy, Unknown, HIVES AND THROAT CONSTRICTS, 09/04/12) Valproic Acid (Verified Allergy, Unknown, 09/04/12) Zolpidem (Verified Allergy, Unknown, 09/04/12) HERNAN MATOS MD Nov 12, 2016 14:50
[2016-11-13] MEDS ORDERED: OLAN5ZYD PO (14:47)
[2016-11-13] MEDS ORDERED: OLAN5TAB PO ×2 (17:13→17:19)
--- NOTE | 2016-11-13 17:36 | IPNPDOC ---
Text Note Date of Service The patient was seen on 11/13/16. NOTE Patient contacted after she was unable to picker/puller her zyprexa at pharmacy with apparent issue with Medicaid numbers of both attending and resident. The patient was contacted and found that she can get a 1 month supply of her zyprexa for 14 USD with GoodRx coupon if her insurance doesn't work at [facility]. After contacting pharmacy they stated that they could have supplies ready tomorrow for the patient. The patient was able to obtain the coupon and agreed to picker/puller the medications tomorrow. Nurse prepress manager and Cooker Mechanic nurse prepress manager notified to help parse out issue with Medicaid numbers. GME ATTESTATION My preceptor for this patient encounter was physically present in the building during the encounter and was fully available. As needed, all aspects of the patient interview, examination, medical decision making process, and medical care plan development were reviewed and approved by the preceptor. Preceptor is aware and concurs with the plan as stated in the body of this note and will attest to such by his/her cosignature. TAMIKA RANKIN DO Nov 13, 2016 17:36
== END 2016-11-12 11:00 | disposition home or self-care (01) | DRG 751 ==
LOC: M ED 17:18 → M ED INP 19:21 → M PSY 22:09
PROVIDERS: ADMIT Psychiatry & Neurology Psychiatry; ATTEND Psychiatry & Neurology Psychiatry
DX: F33.1 Major depressive disorder, recurrent, moderate (principal); F60.3 Borderline personality disorder; F79 Unspecified intellectual disabilities; Z79.899 Other long term (current) drug therapy; Z88.5 Allergy status to narcotic agent; Z88.0 Allergy status to penicillin; Z88.8 Allergy status to other drugs, medicaments and biological substances; Z91.038 Other insect allergy status; Z91.041 Radiographic dye allergy status; Z91.040 Latex allergy status; Z88.7 Allergy status to serum and vaccine; J45.909 Unspecified asthma, uncomplicated; G43.909 Migraine, unspecified, not intractable, without status migrainosus; H35.30 Unspecified macular degeneration

== ENCOUNTER 2016-11-21 12:25 | Inpatient (IN) | payer MEDICAID ==
[~2016-11-21] VITALS: Ht 160 cm; Wt 70.5 kg
[~2016-11-21 12:25] MED LIST changes: +OLAN5TAB PO; +OLAN5ZYD PO; +QUET5TAB PO; +TIZA2TA PO; +VENL75CA PO
[2016-11-21] MEDS ORDERED: VIST25CA PO (12:42)
[2016-11-21] MEDS ORDERED: RIZA10TA2 PO (12:44)
[2016-11-21] MEDS ORDERED: MIRT1TAB PO (12:44)
[2016-11-21] MEDS ORDERED: HYDR50CA2 PO (13:48)
[2016-11-21] MEDS ORDERED: EPIN0.154 INJ (13:48)
[2016-11-21] MEDS ORDERED: SERO50TA PO (13:49)
[2016-11-21] MEDS ORDERED: VENL75CA PO (13:49)
[2016-11-21] MEDS ORDERED: GABA-279 PO (13:49)
[2016-11-21 16:22] VITALS: BP 123/76
[2016-11-21] MEDS ORDERED: traZODone 50 MG TAB PO PRN (17:45)
[2016-11-21] MEDS ORDERED: ACETAMINOPHEN TAB 650MG DOSE (2X325MG) PO PRN (17:45)
[2016-11-21] MEDS ORDERED: MOM 30ML SUSPENSION UDC PO PRN (17:45)
[2016-11-21] MEDS ORDERED: MAALOX 30 ML SUSP *UDC PO PRN (17:45)
[2016-11-21 18:32] VITALS: BP_SYST 123
[2016-11-21] MEDS: RIZATRIPTAN BENZOATE 10 MG TAB PO PRN (21:12)
[2016-11-22 06:28] VITALS: BP 136/63
[2016-11-22] MEDS: RIZATRIPTAN BENZOATE 10 MG TAB PO PRN ×2 (08:59→15:47)
--- NOTE | 2016-11-22 09:26 | HPEPDOC ---
Medical History and Physical Date of Admission Nov 21, 2016 at 13:27 History and Physical PCP: Dr Wilburn ATTENDING: Dr. Yusef Burgess HPI: 36[facility]F [facility], being medically examined today. Patient was transferred from [facility] related to overdose of mirtazapine. Excoriations are noted on the forearms bilaterally, she states she does this when she gets anxious. Denies any fevers, chills, weakness, fatigue, SMITH, CP, SOB, cough, palpitations, abdominal pain, N/V /D or changes in bowel or bladder habits. PMHx: Macular degeneration Left eye retinal disease Wears glasses History of asthma History of pancreatitis History of migraine headache States she is being evaluated by her PCP for enlarged liver Self-mutilation Depression Anxiety History of SI intellectual disability PSHX: Right foot surgery 2, left foot surgery 5 Laser surgery left eye Cholecystectomy Tubal ligation SOCHX: Resides in: [facility], lives with a friend Marital Status: Single Kids: 3, one daughter lives with the daughter's father. 2 boys live with her mother. Employment: Unemployed Tobacco use: Denies ETOH: Denies Illicit Drugs: Denies IV Drug Use: Denies Tattoos done unprofessionally: Denies ROS: As noted in HPI, otherwise 11pt ROS of systems reviewed and remarkable only for LMP 11/21/16 PE: GEN: 36 yoF, appears stated age. Well-nourished, well developed. No acute distress. Alert and oriented x 3. Pleasant, interactive. HEENT: Normocephalic, atraumatic. Pupils are equal, round, and reactive to light. Extraocular movements are intact. No nystagmus appreciated. Sclera are nonicteric. Conjunctiva without injection. Nose midline. Nasal turbinates without bogginess. EACs both patent BL. TMs both visualized and braxton with good cone of light, no bulging or erythema. No facial asymmetry. Moist mucous membranes. Dentition fair. Pharynx pink and moist, no cobblestoning. Neck supple , trachea midline. No lymphadenopathy or thyromegaly appreciated. CHEST: Regular rate and rhythm, +S1, +S2 LUNGS: Clear to auscultation bilaterally. No wheezes, rales, or rhonchi. Breathing appears symmetric and easy. Patient is speaking in full sentences. No accessory muscle use. ABD: Round, soft, non-tender, non-distended. +Bowel sounds throughout. No rebound or guarding. No costovertebral angle tenderness. EXT: Pulses 2+ bilaterally dorsalis pedis and radial. No lower extremity edema appreciated. SKIN: [place], dry, warm. Capillary refill <2sec. No rashes. Excoriations are noted on the forearms bilaterally. NEURO: Alert and oriented x 3. Cranial nerves III-XII are intact. No focal deficits appreciated. EKG: [facility]. [facility] 113. CAH WBC 8.2 Hgb 10.9 Hct 32.5 Plt 281 Na 141 K 4.2 Cl 104 Gluc 83 BUN 18 SCr 0.8 AST 27 ALT 34 CK 521 Troponin <0.01 mag 2.2 UA neg TSH 7.81 Toxicology remarkable for opiates A&P: 36yoF [facility] for unspecified depressive disorder 1. Psych. Plan per Psychiatry. EKG on file. Obtain baseline EKG to assure the safety of psychiatric medications as they can prolong the QT interval. 2. Chronic migraine headache. Continue Maxalt 10 mg as needed at onset of headache. 3. History of asthma. Continue albuterol 2 puffs every 4 hours as needed. 4. Follow up with PCP on discharge. 5. Excoriations to the forearms bilaterally. No drainage or bleeding currently. Apply dry dressing as needed. Apply Bactroban twice a day. 6. Abnormal CK. Recheck. 7. Abnormal TSH. Check TFTs. 8. Add HCG to labs 9. Milagro METCALF present throughout exam Vital Signs Vital Signs Date Time Temp Pulse Resp B/P (MAP) Pulse Ox O2 Delivery O2 Flow Rate FiO2 11/22/16 06:28 98.2 93 16 136/63 (87) 11/21/16 16:22 97 Room Air Home Medications Scheduled Gabapentin (Gabapentin) 100 Mg Cap, 100 MG PO TID PATIENT STATES SHE IS NOT TAKING. HOWEVER, LAST FILLED 11/13/16 FOR 15 DAYS Mirtazapine (Mirtazapine) 7.5 Mg Tab, 7.5 MG PO QHS Quetiapine Fumerate (Seroquel) 50 Mg Tab, 150 MG PO QHS PATIENT STATES SHE IS NOT TAKING. HOWEVER, LAST FILLED 11/12/16 FOR 7 DAYS, WOULD HAVE JUST RUN OUT. Venlafaxine HCl (Venlafaxine HCl ER) 75 Mg Cap, 150 MG PO BID PATIENT STATES SHE IS NOT TAKING. HOWEVER, LAST FILLED 11/12/16 FOR 7 DAYS, WOULD HAVE JUST RUN OUT. Scheduled PRN (Epinephrine) 0.15 Mg/0.3 Ml Inj, 0.15 MG INJ PRN PRN for ALLERGIC REACTION ( BEES) Hydroxyzine Pamoate (Hydroxyzine Pamoate) 50 Mg Cap, 50 MG PO TID PRN for ANXIETY Rizatriptan Benzoate (Rizatriptan Benzoate) 10 Mg Tab, 10 MG PO PRN PRN for MIGRAINE Allergies Coded Allergies: Aripiprazole (Verified Allergy, Unknown, 09/04/12) Bee Venom (Verified Allergy, Unknown, BEE STINGS, 09/04/12) Citalopram (Verified Allergy, Unknown, 09/04/12) Codeine (Verified Allergy, Unknown, PATIENT STATES SHE TAKES PERCOCET WITHOUT PROBLEM, 09/04/12) Contrast Media (Verified Allergy, Unknown, IODINE CONTRAST=HIVES, 06/08/10) Escitalopram (Verified Allergy, Unknown, HIVES AND THROAT CONSTRICTS, ) Hydroxyzine (Verified Allergy, Unknown, 09/04/12) Iodine (Verified Allergy, Unknown, HIVES AND THROAT CONSTRICTS, 09/04/12) Ketorolac Tromethamine (Verified Allergy, Unknown, 11/21/16) Latex (Verified Allergy, Unknown, HIVES AND THROAT CONSTRICTS, 09/04/12) Paroxetine (Verified Allergy, Unknown, 09/04/12) Penicillins (Unverified Allergy, Unknown, 08/04/15) Risperidone (Verified Allergy, Unknown, 09/04/12) Tetanus Toxoid (Verified Allergy, Unknown, HIVES AND THROAT CONSTRICTS, 09/04/12) Tramadol (Verified Allergy, Unknown, 11/21/16) Valproic Acid (Verified Allergy, Unknown, 09/04/12) Zolpidem (Verified Allergy, Unknown, 09/04/12) Sherron Newberry Nov 22, 2016 09:26
[2016-11-22] MEDS ORDERED: ALBUTEROL 90 MCG/ACT 8GM HFA INHALER INH PRN (09:30)
[2016-11-22] MEDS: MUPIROCIN 2% OINT 22 GM TUBE TOP SCH ×2 (10:21→21:00)
--- NOTE | 2016-11-22 12:37 | MHHPEPDOC ---
[facility] History & Physical History and Physical DATE OF ADMISSION: Nov 21, 2016 at 13:27 LEGAL STATUS AT ADMISSION: 9.39 CHIEF COMPLAINT: Patient was admitted because she overdosed on Hydroxyzine (10 tablets of 50 mgs. each). She was at his friend's house when she took the tablets in front of her friend because she thought they didn't believe her when she said she was going to overdose. She was discharged on 11/12/16 but she did overdose on her medications two days later and she was taken to [place]. Her friend brought her in. HISTORY OF THE PRESENT ILLNESS: Patient is a 36-year-old female, who PSYCHIATRIC REVIEW OF SYSTEMS: Affective: Irritable, angry Anxiety: High. She is very anxious about getting out of the [facility] and going to [place] and live with her stepmother. Trauma: Denies Psychosis: Denies Personally: Borderline Personality Disorder PAST PSYCHIATRIC HISTORY: Prior Psychiatric Disorder: History of multiple psychiatric hospitalizations. She was discharged on November 12. H/O Borderline Personality Disorder. Outpatient Treatment: She was supposed to follow up at [facility] Suicidal/Self injurious: She has attempted suicide before and scratches her arms and hands until she bleeds. Psychotropic Medication History: VENLAFAXINE, ZYPREXA, HYDROXYZINE, TRAZODONE,. ARIPIPRAZOLE, CITALOPRAM, ESCITALOPRAM ALLERGIES: Please see below. FAMILY PSYCHIATRIC HISTORY: The patient has had multiple psychiatric hospitalizations; the last one was less than one month ago SOCIAL HISTORY: Early Relations/development: Grew up with her grandparents. She says her mother didn't take care of her and her father had gone back to [place]. Sibling order: She has 4 half sisters and three half brothers. she's the oldest one. Paternal relationships: She has a very bad relationship with her mother and she gets in tough with his father but he's in penitentiary but she says she's not listed in her certificate, so, she wants to have a DNA test to prove she's his daughter and visit him in nursing home. Education: Graduated from high school. 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 Has worked outdoors too. Legal: Her children were taken away from her and her mother has custody of them. She was supposed to attend a hearing about a week ago and she didn't show up. Martial: Not . Economic: Unemployed.Still receiving her SS but she thinks she will loose it next month because her Doctor thinks she can work. Supports: Her stepmother at this time. Abuse/trauma: Denies SUBSTANCE ABUSE HISTORY: Denies drugs or alcohol abuse. PAST MEDICAL/SURGICAL HISTORY: 1. Cholecystectomy, bunions and hammertoes corrected. VITAL SIGNS: Temperature , pulse , respiratory rate , blood pressure , pulse oximetry % on room air. MENTAL STATUS EXAMINATION: General appearance: Patient is a 36-year old female, who is alert, uncooperative , demanding, agitated, with fair eye contact, dressed in hospital clothes mildly disheveled. Speech: Rapid and loud. Not tangential and not circumstantial Thought processes: Irrational Thought content: Perseveres about her previous suicide attempt and being intubated and the most recent. Abstract reasoning and computation: Limited due to pt's poor ability to focus. Description of associations: Not loose. Description of abnormal or psychotic thoughts: Denies auditory and visual hallucinations, denies thought delusions, denies homicidal ideation and denies suicidal ideation but can't contract for safety and harming herself again. Judgment: Poor. Insight: Poor. Orientation: Oriented x 3. Recent and remote memory: Intact. Attention span and concentration: Poor. Fund of knowledge: Fair. Mood: "I'm depressed." Affect: Labile, irritable. DIAGNOSES: 1. Borderline Personality Disorder. 2. Major Depressive Disorder, moderate, recurrent. 3. Mild intellectual disability ASSESSMENT: Pt. is very impulsive, her judgment and insight are extremely poor. She tried to kill herself recently just to prove her friend that she was really suicidal and now she wants to be discharged, even when she has been inflicting herself pain by scratching her arms and hands. She continues to blame other people and the circumstances for her actions, not taking responsibility of her wrongdoings. PROBLEM LIST: 1. Risk for suicide and self harm 2. Poor coping skills. 3. Poor impulse control 4. Cognitive impairment (mild intellectual disability) INITIAL TREATMENT PLAN: 1. Patient was admitted on a 9.39 2. Complete history was obtained. 3. With patients permission, family will be contacted and database will be expanded. 4. Patients medication regimen will be reviewed and changed accordingly. 5. Patient will be provided with protected environment. 6. Patient will be treated with individual, group, and milieu therapies. 7. Patient will receive supportive psych-education. 8. Discharge planning will commence immediately. 9. Outpatient follow-up treatment will be strongly recommended. 10. The initial treatment plan will focus initially on: * Depression. * Risk for suicide. * Substance abuse. ESTIMATED LENGTH OF STAY: 5-7 DAYS. TIME SPENT COUNSELING AND COORDINATING INITIAL CARE: 45 minutes. Medications Scheduled Gabapentin (Gabapentin) 100 Mg Cap, 100 MG PO TID, (Reported) PATIENT STATES SHE IS NOT TAKING. HOWEVER, LAST FILLED 11/13/16 FOR 15 DAYS Mirtazapine (Mirtazapine) 7.5 Mg Tab, 7.5 MG PO QHS, (Reported) Quetiapine Fumerate (Seroquel) 50 Mg Tab, 150 MG PO QHS, (Reported) PATIENT STATES SHE IS NOT TAKING. HOWEVER, LAST FILLED 11/12/16 FOR 7 DAYS, WOULD HAVE JUST RUN OUT. Venlafaxine HCl (Venlafaxine HCl ER) 75 Mg Cap, 150 MG PO BID, (Reported) PATIENT STATES SHE IS NOT TAKING. HOWEVER, LAST FILLED 11/12/16 FOR 7 DAYS, WOULD HAVE JUST RUN OUT. Scheduled PRN (Epinephrine) 0.15 Mg/0.3 Ml Inj, 0.15 MG INJ PRN PRN for ALLERGIC REACTION ( BEES), (Reported) Hydroxyzine Pamoate (Hydroxyzine Pamoate) 50 Mg Cap, 50 MG PO TID PRN for ANXIETY, (Reported) Rizatriptan Benzoate (Rizatriptan Benzoate) 10 Mg Tab, 10 MG PO PRN PRN for MIGRAINE, (Reported) Allergies Coded Allergies: Aripiprazole (Verified Allergy, Unknown, 09/04/12) Bee Venom (Verified Allergy, Unknown, BEE STINGS, 09/04/12) Citalopram (Verified Allergy, Unknown, 09/04/12) Codeine (Verified Allergy, Unknown, PATIENT STATES SHE TAKES PERCOCET WITHOUT PROBLEM, 09/04/12) Contrast Media (Verified Allergy, Unknown, IODINE CONTRAST=HIVES, 06/08/10) Escitalopram (Verified Allergy, Unknown, HIVES AND THROAT CONSTRICTS, ) Hydroxyzine (Verified Allergy, Unknown, 09/04/12) Iodine (Verified Allergy, Unknown, HIVES AND THROAT CONSTRICTS, 09/04/12) Ketorolac Tromethamine (Verified Allergy, Unknown, 11/21/16) Latex (Verified Allergy, Unknown, HIVES AND THROAT CONSTRICTS, 09/04/12) Paroxetine (Verified Allergy, Unknown, 09/04/12) Penicillins (Unverified Allergy, Unknown, 08/04/15) Risperidone (Verified Allergy, Unknown, 09/04/12) Tetanus Toxoid (Verified Allergy, Unknown, HIVES AND THROAT CONSTRICTS, 09/04/12) Tramadol (Verified Allergy, Unknown, 11/21/16) Valproic Acid (Verified Allergy, Unknown, 09/04/12) Zolpidem (Verified Allergy, Unknown, 09/04/12) HERNAN MATOS MD Nov 22, 2016 12:37
[2016-11-22] MEDS: VENLAFAXINE **XR** 75MG CAPSULE PO SCH (14:28)
[2016-11-22] MEDS: diphenhydrAMINE 50 MG CAP PO PRN ×2 (14:33→21:09)
[2016-11-22] MEDS: HALOPERIDOL 5 MG TAB PO SCH ×2 (14:33→21:09)
[2016-11-22] MEDS: LORazepam 0.5 MG TAB PO PRN ×2 (15:39→21:09)
[2016-11-22 16:10] LABS: CONTROL LINE HCG INT CTR LINE PRESENT
[2016-11-22 16:25] LABS: T UPTAKE 34 % (30-39); THYROXINE (T4) 7.3 UG/DL (4.5-12.0)
[2016-11-22 18:00] VITALS: BP 114/62
[2016-11-22] MEDS ORDERED: risperiDONE 1 MG TAB PO SCH ×2 (21:00)
[2016-11-22] MEDS: traZODone 100 MG TAB PO SCH (21:09)
[2016-11-23 06:37] VITALS: BP 119/65
[2016-11-23] MEDS: RIZATRIPTAN BENZOATE 10 MG TAB PO PRN (07:38)
[2016-11-23 08:32] VITALS: BP 126/74
[2016-11-23] MEDS: diphenhydrAMINE 50 MG CAP PO PRN ×2 (08:42→21:02)
[2016-11-23] MEDS: VENLAFAXINE **XR** 75MG CAPSULE PO SCH (08:42)
[2016-11-23] MEDS: HALOPERIDOL 5 MG TAB PO SCH ×2 (08:42→21:02)
[2016-11-23] MEDS: MUPIROCIN 2% OINT 22 GM TUBE TOP SCH ×2 (08:43→21:00)
[2016-11-23 18:00] VITALS: BP 120/64
[2016-11-23] MEDS: traZODone 100 MG TAB PO SCH (21:02)
[2016-11-23] MEDS: LORazepam 0.5 MG TAB PO PRN (21:02)
--- NOTE | 2016-11-23 21:43 | MHIPNPDOC ---
[facility] Progress Note Progress Note DATE OF SERVICE: 11/23/16 HISTORY: 36 year old female with history of Borderline Personality Disorder, Major Depressive Disorder, recurrent and Mild Intellectual Disability who was recently discharged from the [facility] and overdosed with medications shortly after her discharge, was taken to [place] where she was intubated and got discharged. After being discharged, she went home, her friend told her he didn t think she was going to kill herself ( because she was threatening on doing it) and she said she would do it. Grabbed a handful of pills to prove him he was wrong, and swallowed the, It was her friend who brought her to the hospital. VITAL SIGNS: See below. NEW TEST RESULTS: No new test results. CURRENT MEDICATIONS: See below. MENTAL STATUS EXAMINATION: Patient is a 36-year old female, who is alert, oriented x 3, guarded, suspicious , with poor eye contact. Speech: Is fluid, loud and rapid. Language skills are fair Thought processes including: Not rational. Thought content: perseveres about going to [place] because she hasnt been able to get a job in [place]. Abstract reasoning, and computation: Limited. Description of associations: Not loose Description of abnormal or psychotic thoughts: Denies auditory and visual hallucinations, denies delusional thoughts and denies active suicidal thoughts but says shes not sure she wouldnt do it again (try to kill herself). Judgment: Very poor Insight: Very poor. Orientation: Oriented x 3. Recent and remote memory: Intact. Attention span and concentration: Limited. Language: Fair. Fund of knowledge: Fair. Mood: "anxious". Affect: Labile. DIAGNOSES: 1. Borderline Personality Disorder. 2. Major Depressive Disorder, recurrent. 3. Mild Intellectual Disability. ASSESSMENT:Pt. is extremely impulsive, has very poor judgement andinsight and is depressed. Has very poor coping skills. Needs to continue with hospitalization and on 1:1 until her impulse control improves. MANAGEMENT PLAN: will continue at the [facility] until stabilization is achieved. TIME SPENT: 30 minutes. Vital Signs Vital Signs Date Time Temp Pulse Resp B/P (MAP) Pulse Ox O2 Delivery O2 Flow Rate FiO2 11/23/16 18:00 98.5 95 16 120/64 (82) 11/21/16 16:22 97 Room Air Current Medications Current Medications Acetaminophen (Tylenol Tab) 650 mg Q6HP PRN PO HEADACHE or DISCOMFORT; Start at 17:45; Stop 12/21/16 at 17:44 Al Hydrox/Mg Hydrox/Simethicone (Mylanta) 30 ml Q4HP PRN PO HEARTBURN/ INDIGESTION; Start 11/21/16 at 17:45; Stop 12/21/16 at 17:44 Albuterol Sulfate (Proventil, Ventolin Hfa) 2 puff Q4HP PRN INH SHORTNESS OF BREATH; Start 11/22/16 at 09:30; Stop 12/22/16 at 09:29 Diphenhydramine HCl (Benadryl) 50 mg BIDP PRN PO Extrapyramidal side effects Last administered on 11/23/16 21:02; Start 11/22/16 at 14:15; Stop 12/22/16 at 14:14 Haloperidol (Haldol) 5 mg BID PO Last administered on 11/23/16 21:02; Start at 09:00; Stop 12/22/16 at 08:59 Home Med (Med Rec Complete!) ASDIRECTED XX ; Start 11/21/16 at 14:00; Stop at 14:00; Status DC Lorazepam (Ativan) 0.5 mg BIDP PRN PO ANXIETY Last administered on 11/23/16 21 :02; Start 11/22/16 at 13:45; Stop 11/29/16 at 13:44 Magnesium Hydroxide (Milk Of Magnesia) 30 ml DAILYPRN PRN PO CONSTIPATION; Start 11/21/16 at 17:45; Stop 12/21/16 at 17:44 Mupirocin (Bactroban 2% Ointment) 1 dose BID TOP Last administered on 08:43; Start 11/22/16 at 09:00; Stop 12/22/16 at 08:59 Risperidone (RisperDAL) 1 mg BID PO ; Start 11/22/16 at 21:00; Stop 12/22/16 at 20:59; Status UNV Risperidone (RisperDAL) 1 mg QHS PO ; Start 11/22/16 at 21:00; Stop 12/22/16 at 20:59; Status UNV Rizatriptan Benzoate (Maxalt) 10 mg Q2HP PRN PO MIGRAINE Last administered on 08:59; Start 11/21/16 at 21:15; Stop 11/22/16 at 14:00; Status DC Rizatriptan Benzoate (Maxalt) 10 mg Q6HP PRN PO MIGRAINE Last administered on 07:38; Start 11/22/16 at 16:00; Stop 12/21/16 at 15:59 Trazodone HCl (Desyrel) 50 mg QHSP PRN PO INSOMNIA Last administered on 23:06; Start 11/21/16 at 17:45; Stop 11/22/16 at 13:54; Status DC Trazodone HCl (Desyrel) 200 mg QHS PO Last administered on 11/23/16 21:02; Start 11/22/16 at 21:00; Stop 12/22/16 at 20:59 Venlafaxine HCl (Effexor Xr) 150 mg DAILY PO Last administered on 08:42; Start 11/22/16 at 09:00; Stop 12/22/16 at 08:59 Allergies Coded Allergies: Aripiprazole (Verified Allergy, Unknown, 09/04/12) Bee Venom (Verified Allergy, Unknown, BEE STINGS, 09/04/12) Citalopram (Verified Allergy, Unknown, 09/04/12) Codeine (Verified Allergy, Unknown, PATIENT STATES SHE TAKES PERCOCET WITHOUT PROBLEM, 09/04/12) Contrast Media (Verified Allergy, Unknown, IODINE CONTRAST=HIVES, 06/08/10) Escitalopram (Verified Allergy, Unknown, HIVES AND THROAT CONSTRICTS, ) Hydroxyzine (Verified Allergy, Unknown, 09/04/12) Iodine (Verified Allergy, Unknown, HIVES AND THROAT CONSTRICTS, 09/04/12) Ketorolac Tromethamine (Verified Allergy, Unknown, 11/21/16) Latex (Verified Allergy, Unknown, HIVES AND THROAT CONSTRICTS, 09/04/12) Paroxetine (Verified Allergy, Unknown, 09/04/12) Penicillins (Unverified Allergy, Unknown, 08/04/15) Risperidone (Verified Allergy, Unknown, 09/04/12) Tetanus Toxoid (Verified Allergy, Unknown, HIVES AND THROAT CONSTRICTS, 09/04/12) Tramadol (Verified Allergy, Unknown, 11/21/16) Valproic Acid (Verified Allergy, Unknown, 09/04/12) Zolpidem (Verified Allergy, Unknown, 09/04/12) HERNAN MATOS MD Nov 23, 2016 21:43
[2016-11-24] MEDS: VENLAFAXINE **XR** 75MG CAPSULE PO SCH (08:09)
[2016-11-24] MEDS: diphenhydrAMINE 50 MG CAP PO PRN (08:09)
[2016-11-24] MEDS: HALOPERIDOL 5 MG TAB PO SCH (08:09)
[2016-11-24] MEDS: MUPIROCIN 2% OINT 22 GM TUBE TOP SCH ×2 (08:10→20:41)
[2016-11-24] MEDS: RIZATRIPTAN BENZOATE 10 MG TAB PO PRN (08:13)
[2016-11-24 12:32] LABS: ALBUMIN 3.4 GM/DL (3.2-5.2); ALBUMIN/GLOBULIN RATIO 0.83 (1.00-1.93); ALKALINE PHOSPHATASE 112 U/L (45-117); ALT/SGPT 38 U/L (12-78); ANION GAP 7 MEQ/L (8-16); AST/SGOT 17 U/L (15-37); BILIRUBIN,TOTAL 0.3 MG/DL (0.2-1.0); BLOOD UREA NITROGEN 14 MG/DL (7-18); CALCIUM LEVEL 9.2 MG/DL (8.5-10.1); CARBON DIOXIDE LEVEL 29 MEQ/L (21-32); CHLORIDE LEVEL 104 MEQ/L (98-107); CREATININE FOR GFR 0.93 MG/DL (0.55-1.02); GLOMERULAR FILTRATION RATE > 60.0 (>60); GLUCOSE, FASTING 94 MG/DL (70-105); POTASSIUM SERUM 4.3 MEQ/L (3.5-5.1); SODIUM LEVEL 140 MEQ/L (136-145); TOTAL PROTEIN 7.5 GM/DL (6.4-8.2)
[2016-11-24 18:00] VITALS: BP 117/58
[2016-11-24] MEDS: traZODone 100 MG TAB PO SCH (20:41)
[2016-11-25 06:00] VITALS: BP 116/62
[2016-11-25] MEDS: MUPIROCIN 2% OINT 22 GM TUBE TOP SCH ×2 (09:16→21:00)
[2016-11-25] MEDS: VENLAFAXINE **XR** 75MG CAPSULE PO SCH (09:16)
--- NOTE | 2016-11-25 10:12 | IPN ---
DATE OF SERVICE: 11/24/2016 Evaluated 36-year-old female with a history of borderline personality disorder, major depressive disorder, recurrent and mild intellectual disability who was recently admitted for intentional overdose on hydroxyzine. SUBJECTIVE: The patient reports that she has been sleeping better, she requests to come out of 1-to-1 sitter, denies suicidal ideation and homicidal ideation, reports that she has not hurt herself since she was admitted and that the last impulse that she had to hurt herself was the day that she went to the emergency room seeking help. OBJECTIVE: On mental status examination, the patient was alert, oriented times three, slightly less guarded and aggressive with fair eye contact. Her speech is fluent, less rapid. Language skills are fair. Thought process is intact. Thought content. She continues to say that her life will change completely when she goes to live in [place]. She continues to deny responsibility on her short comings in life. She attributes her lack of luck, her unemployment, her diseases, her legal problems, having loss custody of her children, on other people and on the place she lives. Descriptions of her associations: She has no loosening of her association. Descriptions of abnormal or psychotic thoughts: Denies auditory and visual hallucinations, denies delusional thoughts and denies active suicidal and homicidal thoughts. Her judgment and insight are extremely poor. She is oriented times three, her recent and remote memory are intact. Her attention span and concentration are limited, her language is fair. Her fund of knowledge is fair. Her mood is "I am okay". Her affect is less labile, less explosive. The patient has improved, less labile, less explosive. She has not been hurting her self, has not been scratching herself. Currently, she is on trazodone 200 mg by mouth nightly, venlafaxine 150 mg by mouth daily. The haloperidol was discontinued this morning because her CK was 499. According to new lab results, it has come down to 123. For that reason, the patient will be started on haloperidol again. Currently, the patient has been stable, not violent, no behavioral problems have been reported or seen. We will follow her up. [facility]PITALMariajose
[2016-11-25] MEDS: LORazepam 0.5 MG TAB PO PRN (12:59)
[2016-11-25 18:00] VITALS: BP 111/72
[2016-11-25] MEDS: traZODone 100 MG TAB PO SCH (22:15)
[2016-11-26 06:29] VITALS: BP 126/64
[2016-11-26] MEDS: LORazepam 0.5 MG TAB PO PRN (08:37)
[2016-11-26] MEDS: VENLAFAXINE **XR** 75MG CAPSULE PO SCH (08:37)
[2016-11-26] MEDS: MUPIROCIN 2% OINT 22 GM TUBE TOP SCH ×2 (08:38→21:03)
[2016-11-26] MEDS: HALOPERIDOL 5 MG TAB PO SCH ×2 (11:33→21:01)
[2016-11-26] MEDS: diphenhydrAMINE 25 MG CAP PO PRN ×2 (11:34→21:01)
--- NOTE | 2016-11-26 12:11 | IPN ---
DATE OF SERVICE: 11/25/2016 I evaluated a 36-year-old female who was admitted on 11/21 after she overdosed on 10 tablets of hydroxyzine of 50 mg each. This is the second suicide attempt that she has had in approximately 12 days after she was discharged from the inpatient mental health unit on 11/12. Patient is known for long-term treatment for borderline personality disorder, major depressive disorder, recurrent, severe with suicidal ideation, previous suicide attempt and mild intellectual disability. Patient continues to report that she feels better because she wants to go to [place] as soon as she is discharged from the inpatient mental health unit. She believes she will be able to get a job in [place], earn money, get a car, drive a car and come back to [place] and be able to take care of her children. At the present time, she denies suicidal or homicidal ideation, denies auditory or visual hallucinations and she reports no desire to harm herself by scratching or causing abrasions to her skin. She states that she has not scratched herself or caused herself damage since 11/21 when she was admitted. She is goal directed, positive and enthusiastic about her future in [place] and states she does not want to hurt herself or compromise the possibility of being discharged this week so that she can go and live with her stepmother in [place]. At the present time, the patient is not suicidal, not homicidal, not delusional, not psychotic and is not a danger to self or others. Will followup closely and will monitor.
[2016-11-26 18:33] VITALS: BP 105/63
[2016-11-26] MEDS: RIZATRIPTAN BENZOATE 10 MG TAB PO PRN (19:47)
[2016-11-26] MEDS: traZODone 100 MG TAB PO SCH (21:03)
--- NOTE | 2016-11-26 21:46 | IPN ---
DATE: 11/26/2016 Evaluated 36-year-old female with history of borderline personality disorder, major depressive disorder, recurrent, severe and mild intellectual disability who was admitted for an intentional overdose with approximately 10-15 tablets of hydroxyzine (or Atarax). Patient was discharged on 11/12/2016, from the inpatient mental health unit and approximately 2 days after she overdosed on different medications and had to be transferred to [place] where she had to be intubated. Patient reports at the present time she is motivated to change her life and she is willing to go to [place] to live with her stepmother and start a new job and a new life over there. There are no test results. MENTAL STATUS EXAMINATION: The patient is a 36-year-old female who is alert, dressed in hospital clothes, with good eye contact and cooperative. Her speech is slow but articulate, her language skills are fair. Her thought process is intact. Her thought content is coherent. Her abstract reasoning and computation are limited. Description of associations is good. Description of abnormal or psychotic thoughts: She does not endorse any bizarre ideas such as delusional thoughts and denies auditory and visual hallucinations. Currently denies suicidal or homicidal ideation. Her judgment and insight are still poor. She is oriented times three. Her recent and remote memory are fair. Her attention and concentration are fair. Her language is normal. Her fund of knowledge is adequate. Mood is "I'm happy" and her affect is euthymic. ASSESSMENT: The patient has improved, she has not been hurting herself, she has not been digging up her arms or scratching her arms until she bleeds, which is what she has done on previous hospitalizations. She has been less impulsive and less depressed. Currently, considering discharge if patient continues to be stable at the inpatient mental health unit. reception manager needs to contact stepmother and friends because she will be discharged in [place] to a friend or to her mother's and then she will be traveling to [place]. Need to verify safety in her environment. In the meantime, she will continue to be on the same medication. TIME SPENT: 20 minutes.
[2016-11-27 06:29] VITALS: BP 104/57
[2016-11-27] MEDS: HALOPERIDOL 5 MG TAB PO SCH (08:38)
[2016-11-27] MEDS: VENLAFAXINE **XR** 75MG CAPSULE PO SCH (08:38)
[2016-11-27] MEDS: diphenhydrAMINE 25 MG CAP PO PRN (08:38)
[2016-11-27] MEDS: MUPIROCIN 2% OINT 22 GM TUBE TOP SCH (08:39)
[2016-11-27] MEDS ORDERED: TRAZ10TA PO (13:27)
[2016-11-27] MEDS ORDERED: HALO5TA PO (13:27)
[2016-11-27] MEDS ORDERED: MAXA10TA14 PO (13:27)
[2016-11-27] MEDS ORDERED: VENL75CA PO (13:27)
[2016-11-27] MEDS ORDERED: DIPH25CA PO (13:27)
--- NOTE | 2016-11-27 21:29 | DSES ---
DATE OF ADMISSION: 11/21/2016 DATE OF DISCHARGE: 11/27/2016 DISCHARGE DIAGNOSES: 1. Borderline personality disorder. 2. Major depressive disorder, recurrent, moderate. 3. Intellectual disability, mild. REASON FOR ADMISSION: Patient was admitted for an intentional overdose with 10-15 tablets of hydroxyzine (Atarax). Patient had been recently discharged from the inpatient mental health unit on November 12, and approximately 2 days later she overdosed again with other medications and had to be transferred to [place] from [place] and had to be intubated. Just being discharged from [place] a couple of days later, she overdosed again on hydroxyzine. CONSULTANTS INVOLVED: None. TREATMENT AND PROGRESS ON THE UNIT: Patient had a good response to treatment, was not agitated as on previous admission, and complied with medications and attended some of the groups. She received treatment with Haldol 5 mg by mouth twice a day, venlafaxine 150 mg by mouth daily, Atarax 75 mg by mouth every 6 hours as needed for anxiety or agitation. HOSPITAL COURSE: As it was described above, she had a good response to medication, and she attended groups, where she was able to interact without getting into fights with other patients. She is motivated for change. She is willing to go to [place] and start a new life, get a job, get a car, save some money, and come back to [place] to be able to recover the custody of her children. DISCHARGE ASSESSMENT: Upon discharge, patient was alert, oriented times three, cooperative, and was not a danger to self or others. She was not suicidal and not homicidal. She was not endorsing bizarre ideations, paranoid delusions, or auditory/visual hallucinations. MENTAL STATUS EXAMINATION ON DISCHARGE: Patient is a 36-year-old female who is alert, oriented times three, dressed in personal clothes, cooperative with interview. Speech is normal, fluent. Language skills are fair. Thought process is intact. Thought content is coherent. Abstract reasoning and computation are fair. Description of associations: Not loose. Description of abnormal or psychotic thoughts: She denies suicidal and homicidal ideation. Denies auditory and visual hallucinations and denies delusional thought.s Judgment and insight are improved. Oriented times three. Recent and remote memory fair. Attention span and concentration fair. Language normal. Fund of knowledge fair. Mood "happy." Affect full range, appropriate, congruent to mood. MEDICATIONS ON DISCHARGE: As described above. PLAN: Followup arrangements. Patient received a prescription for her medications, but she is going to go to [place], where she will have to arrange to receive Medicaid for her to continue receiving treatment. Some of her medications, for example, her venlafaxine, has refills, but other medications have no refills, because she is at high risk of overdosing once again. Hopefully this will not happen anymore, because she is motivated for change. The amount of time spent in the coordination of care for this patient was approximately 45 minutes.
== END 2016-11-27 14:00 | disposition home or self-care (01) | DRG 752 ==
LOC: M ED 13:08 → M ED INP 13:27 → M PSY 16:01
PROVIDERS: ADMIT Psychiatry & Neurology Psychiatry; ATTEND Psychiatry & Neurology Psychiatry
DX: F60.3 Borderline personality disorder (principal); F33.2 Major depressive disorder, recurrent severe without psychotic features; F70 Mild intellectual disabilities; J45.909 Unspecified asthma, uncomplicated; G43.909 Migraine, unspecified, not intractable, without status migrainosus; H35.30 Unspecified macular degeneration

== ENCOUNTER 2018-07-27 16:48 | Emergency (ER) | payer MEDICAID, OTHER ==
[~2018-07-27] VITALS: Ht 160 cm; Wt 61.4 kg
[2018-07-27 16:48] VITALS: BP 135/82
[~2018-07-27 16:48] MED LIST changes: +DIPH25CA PO; +EPIN0.154 INJ; +GABA-1171 PO; +HALO5TA PO; +HYDR50CA2 PO; +MAXA10TA14 PO; +MIRT1TAB PO; +RIZA10TA2 PO; +SERO50TA PO; +TRAZ10TA PO; -VENL75CA PO; +VENL75CA2 PO; +VIST25CA PO
[2018-07-27] MEDS ORDERED: NS 1,000 ML IV ONE (17:45)
[2018-07-27] MEDS ORDERED: METOCLOPRAMIDE INJ 10MG/2ML VIAL (J2765) IV ONE (17:45)
[2018-07-27] MEDS ORDERED: LIDOCAINE VISCOUS 2% SOLN 15ML UDC SS ONE (17:45)
[2018-07-27] MEDS ORDERED: diphenhydrAMINE INJ 50MG/ML VIAL (J1200) IV ONE (17:45)
[2018-07-27] MEDS ORDERED: LIDO1SOL7 PO (18:50)
== END 2018-07-27 19:00 | disposition home or self-care (01) ==
LOC: M ED 16:48
DX: G43.909 Migraine, unspecified, not intractable, without status migrainosus (principal); J02.9 Acute pharyngitis, unspecified; Z88.0 Allergy status to penicillin; Z88.5 Allergy status to narcotic agent; Z88.6 Allergy status to analgesic agent; Z91.030 Bee allergy status; Z91.040 Latex allergy status; Z91.041 Radiographic dye allergy status
CPT/HCPCS: 81001; 87880; 96361; 96374; 96375; 99284; J1200; J2765

== ENCOUNTER 2018-09-03 12:15 | Inpatient (IN) | payer MEDICAID, OTHER ==
[~2018-09-03 12:15] MED LIST changes: +CYMB1CAP4; -DULO20CA; +LIDO1SOL8 PO
[2018-09-03] MEDS ORDERED: NS 1,000 ML IV ONE ×2 (12:30→13:45)
[2018-09-03] MEDS ORDERED: TIZA2CAP PO (12:41)
[2018-09-03] MEDS ORDERED: VITA500079 PO (12:41)
[2018-09-03] MEDS ORDERED: LEVO75TA4 PO (12:41)
[2018-09-03] MEDS ORDERED: CHARCOAL ACTIVATED LIQUID 25 GM/120 ML BTL PO ONE (12:45)
[2018-09-03 13:21] LABS: HEMATOCRIT 35.7 % (36.0-47.0); HEMOGLOBIN 11.9 g/dl (12.0-15.5); MEAN CORPUSCULAR HEMOGLOBIN 29.3 pg (27.0-33.0); MEAN CORPUSCULAR HGB CONC 33.3 g/dl (32.0-36.5); MEAN CORPUSCULAR VOLUME 87.9 fl (80.0-96.0); PLATELET COUNT, AUTOMATED 292 10^3/uL (150-450); RED BLOOD COUNT 4.06 10^6/uL (4.00-5.40); WHITE BLOOD COUNT 9.3 10^3/uL (4.0-10.0)
[2018-09-03 13:24] LABS: ACETAMINOPHEN LEVEL < 2.0 UG/ML (10.0-30.0); ALBUMIN 3.6 GM/DL (3.2-5.2); ALT/SGPT 42 U/L (12-78); BILIRUBIN,DIRECT 0.1 MG/DL (0.0-0.2); BILIRUBIN,TOTAL 0.6 MG/DL (0.2-1.0); BLOOD UREA NITROGEN 12 MG/DL (7-18); CALCIUM LEVEL 8.9 MG/DL (8.5-10.1); CARBON DIOXIDE LEVEL 25 MEQ/L (21-32); CHLORIDE LEVEL 106 MEQ/L (98-107); CREATININE FOR GFR 0.84 MG/DL (0.55-1.30); ETHYL ALCOHOL (ETHANOL) < 0.003 % (0.000-0.010); GLOMERULAR FILTRATION RATE > 60.0 (>60); GLUCOSE, FASTING 107 MG/DL (70-100); POTASSIUM SERUM 3.9 MEQ/L (3.5-5.1); SALICYLATE LEVEL < 1.7 MG/DL (5.0-30.0); SODIUM LEVEL 139 MEQ/L (136-145); TOTAL PROTEIN 7.6 GM/DL (6.4-8.2)
[2018-09-03 13:30] LABS: HCG, SERUM QUALITATIVE NEGATIVE (NEGATIVE)
[2018-09-03 14:24] LABS: AMPHETAMINES LEVEL URINE NEGATIVE (NEGATIVE); BARBITURATES URINE NEGATIVE (NEGATIVE); BENZODIAZEPINES URINE POSITIVE (NEGATIVE); CANNABINOIDS URINE NEGATIVE (NEGATIVE); COCAINE METABOLITE URINE NEGATIVE (NEGATIVE); METHADONE URINE NEGATIVE (NEGATIVE); OPIATES URINE POSITIVE (NEGATIVE); PHENCYCLIDINE URINE NEGATIVE (NEGATIVE)
[2018-09-03] MEDS ORDERED: NALOXONE INJ 0.4 MG/1 ML VIAL (J2310) IV STA (15:17)
[2018-09-03] MEDS ORDERED: NS 1,000 ML IV SCH (15:49)
[2018-09-03] MEDS ORDERED: NALOXONE INJ 2 MG/2 ML SYRINGE (J2310) IV STA (16:15)
[2018-09-03] MEDS ORDERED: OLANZapine INTRAMUSCULAR 10 MG VIAL (S0166) IM ONE (19:00)
[2018-09-03] MEDS ORDERED: QUEtiapine FUMARATE 25 MG TAB PO SCH (21:00)
[2018-09-03] MEDS ORDERED: MAALOX 30 ML SUSP *UDC PO PRN (21:15)
[2018-09-03] MEDS ORDERED: MOM 30ML SUSPENSION UDC PO PRN (21:15)
[2018-09-03] MEDS ORDERED: SUMA6KIT SC (21:45)
[2018-09-03] MEDS ORDERED: SYNT75TA PO (21:45)
[2018-09-03] MEDS ORDERED: D 50CAP PO (21:45)
[2018-09-03] MEDS ORDERED: EPIP0.3I2 IM (21:45)
[2018-09-03] MEDS ORDERED: TIZA2TA PO (21:45)
[2018-09-04 06:27] VITALS: BP 111/60
[2018-09-04] MEDS: LEVOTHYROXINE 75MCG TABLET (0.075MG) PO SCH (08:44)
[2018-09-04] MEDS ORDERED: SERTRALINE HCL 50 MG TAB PO SCH (09:00)
[2018-09-04] MEDS ORDERED: QUEtiapine FUMARATE 50 MG TAB PO SCH (09:00)
--- NOTE | 2018-09-04 09:04 | ECGEPIP ---
Stationary ECG Study [facility] - ED Test Date: 2018-09-03 Pat Name: NIURKA DENNEY Department: Room: - Gender: F Institute Director: ct : 1980 Requested By: KHOA Ozuna Order Number: [id number] Reading MD: Ramonita Villanueva Measurements Intervals [place] Rate: 81 P: 53 MT: 160 QRS: 12 QRSD: 77 T: 22 QT: 377 QTc: 440 Interpretive Statements SINUS RHYTHM SIMILAR 09/27/15 Electronically Signed On 09-04-2018 9:04:51 EDT by Ramonita Villanueva
[2018-09-04] MEDS: OLANZapine ORAL DISINTEGRATING TAB 5MG PO PRN (12:16)
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
[2018-09-04] MEDS: QUEtiapine FUMARATE 100 MG TAB PO SCH ×2 (15:37→22:48)
[2018-09-04 18:00] VITALS: BP 129/74
[2018-09-04] MEDS ORDERED: diphenhydrAMINE 50 MG CAP PO ONE (22:00)
[2018-09-04] MEDS ORDERED: LORazepam 2 MG TAB PO ONE (22:00)
[2018-09-04] MEDS: HALOPERIDOL 10 MG TAB PO ONE ×2 (22:48→22:51)
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
[2018-09-05] MEDS: LEVOTHYROXINE 75MCG TABLET (0.075MG) PO SCH (06:17)
[2018-09-05 06:27] VITALS: BP 119/59
[2018-09-05] MEDS: QUEtiapine FUMARATE 100 MG TAB PO SCH ×2 (08:07→21:19)
[2018-09-05] MEDS: OLANZapine ORAL DISINTEGRATING TAB 5MG PO PRN ×2 (12:11→23:40)
[2018-09-05] MEDS ORDERED: lamoTRIgine 25 MG TAB PO ONE (12:30)
[2018-09-05] MEDS ORDERED: clonazePAM 0.5 MG TAB PO ONE ×2 (12:30→21:00)
--- NOTE | 2018-09-05 12:56 | MHIPN ---
DATE: 09/05/2018 SUBJECTIVE: "I feel dizzy and very anxious. I have no friends. and I have no other support. I feel extremely depressed." OBJECTIVE: She is a 37-year-old female with a history of depression, borderline personality disorder who has a history of multiple psychiatric hospitalizations, was admitted as the patient reported that she overdosed on pills as a suicide attempt. She reportedly took fourteen 2 mg of muscle relaxants. She reportedly is homeless. MENTAL STATUS EXAMINATION: APPEARANCE: Well groomed. BEHAVIOR: Cooperative, somewhat anxious and restless. Made good eye contact. SPEECH: Spontaneous, conversant. AFFECT: Somewhat constricted. MOOD: Depressed and anxious. THOUGHT PROCESS: Linear and goal directed. THOUGHT CONTENT: Denied any delusions. Denied any suicidal or homicidal ideas. INSIGHT AND JUDGMENT: Limited. COGNITION: Alert, oriented to time, place and person. MEMORY: Intact. DIAGNOSES: 1. Major depressive disorder, moderate, recurrent. 2. Mild intellectual disability. 3. Borderline personality disorder. The patient continues to have severe depression and is unpredictable at this point. She complains of dizziness due to Seroquel. She continues to have anxiety. PLAN: Decrease Seroquel to 200 mg twice a day and add Lamictal 12.5 mg at night and add Klonopin 0.5 mg daily. The patient has a history of overdosing on codeine pills, as well as muscle relaxants. The patient has multiple allergies. I would prefer to place her on benzodiazepine at a small dose and control her anxiety. Estimated length of stay: 3 to 4 days.
[2018-09-05] MEDS: PILL CRUSHER/CUTTER 1 EACH XX PRN (13:25)
[2018-09-05 18:24] VITALS: BP 120/75
[2018-09-06] MEDS: LEVOTHYROXINE 75MCG TABLET (0.075MG) PO SCH (06:03)
[2018-09-06 06:46] VITALS: BP 118/57
[2018-09-06] MEDS: QUEtiapine FUMARATE 100 MG TAB PO SCH ×2 (08:54→20:59)
[2018-09-06] MEDS ORDERED: CitaloPRAM (CeleXA) 10 MG TABLET PO SCH (09:00)
[2018-09-06] MEDS ORDERED: clonazePAM 0.5 MG TAB PO SCH (12:15)
[2018-09-06] MEDS: clonazePAM 0.5 MG TAB PO PRN ×2 (12:47→20:59)
--- NOTE | 2018-09-06 14:42 | MHIPN ---
DATE: 09/06/2018 SUBJECTIVE: I am scratching my forearm because of anxiety. OBJECTIVE: She is a 37-year-old female with history of depression and borderline personality disorder, with history of multiple psychiatric hospitalizations who was admitted because of overdosing on pills as a suicide attempt. She is currently homeless. Continues to be anxious and showing some agitation. MENTAL STATUS EXAM: Appearance: Casually dressed with clean dress. She is cooperative. However, seems to be anxious. Made normal eye contact. Speech is spontaneous, conversant. Affect is full range. Mood is depressed. Thought process is linear, goal-directed. Thought content: Denied any hallucinations. Denied any delusions. Denied any suicidal or homicidal ideas. Cognition: Alert and oriented to time, place and person. Her memory is intact. Insight and judgment are limited. DIAGNOSES: Major depressive disorder, moderate, recurrent. Mild intellectual disabilities. Borderline personality disorder. The patient continues to have depression and anxiety. PLAN: Yesterday I decreased the Seroquel to 200 mg twice daily and added Lamictal 12.5 mg at night. I will titrate the dose of Lamictal upwards. I have also placed her on Klonopin 0.25 mg twice daily instead of 0.5 mg once daily as patient has history of overdosing. Will slowly wean off her Klonopin. Psychoeducation was done. ESTIMATED LENGTH OF STAY: 3 to 4 days. VITAL SIGNS: Temperature 98.3, pulse is 68, respirations 14, blood pressure 118/57.
[2018-09-06] MEDS: OLANZapine ORAL DISINTEGRATING TAB 5MG PO PRN (15:23)
[2018-09-06 18:00] VITALS: BP 123/69
[2018-09-07] MEDS: LEVOTHYROXINE 75MCG TABLET (0.075MG) PO SCH (05:39)
[2018-09-07] MEDS: OLANZapine ORAL DISINTEGRATING TAB 5MG PO PRN (05:39)
[2018-09-07 06:45] VITALS: BP 115/63
[2018-09-07] MEDS: ACETAMINOPHEN TAB 650MG DOSE (2X325MG) PO PRN (08:12)
[2018-09-07] MEDS: QUEtiapine FUMARATE 100 MG TAB PO SCH (08:12)
[2018-09-07] MEDS ORDERED: lamoTRIgine 25 MG TAB PO ONE (13:00)
[2018-09-07] MEDS: clonazePAM 0.5 MG TAB PO PRN ×2 (15:22→19:53)
[2018-09-07] MEDS: PILL CRUSHER/CUTTER 1 EACH XX PRN (15:22)
[2018-09-07 18:00] VITALS: BP 135/80
--- NOTE | 2018-09-07 20:32 | MHIPN ---
DATE: 09/07/2018 SUBJECTIVE: "I am still feeling dizzy and anxious. I feel that it is because of Seroquel." OBJECTIVE: She is a 37-year-old female with history of depression and borderline personality disorder, with history of multiple psychiatric hospitalizations who was admitted for suicide attempt by overdosing on pills. Currently she is doing well though continues to have medication seeking behavior. She asked for medication for her mood swings and anxiety as well. MENTAL STATUS EXAM: Appearance: She is well groomed. Behavior is cooperative. Medication seeking and anxious. Made good eye contact. Speech is spontaneous, conversant. Affect is somewhat constricted. Mood is depressed and anxious. Thought process is linear, goal-directed. Thought content: Denied any hallucinations. Denied any delusions. Denied any suicidal or homicidal ideas. Insight and judgment are limited. Cognition: Alert and oriented to time, place and person. Memory intact. DIAGNOSES: Major depressive disorder, moderate, recurrent. Mild intellectual disability. Borderline personality disorder. PLAN: Decrease the Seroquel to 150 mg at night and add Lamictal at 25 mg at night. Continue with Klonopin 0.25 mg twice daily.
[2018-09-07] MEDS: QUEtiapine FUMARATE 200 MG TAB PO SCH (22:08)
[2018-09-08] MEDS: LEVOTHYROXINE 75MCG TABLET (0.075MG) PO SCH (05:50)
[2018-09-08] MEDS: ACETAMINOPHEN TAB 650MG DOSE (2X325MG) PO PRN ×2 (07:51→16:16)
[2018-09-08] MEDS: clonazePAM 0.5 MG TAB PO PRN ×2 (07:54→20:54)
[2018-09-08] MEDS ORDERED: QUEtiapine FUMARATE 25 MG TAB PO SCH (09:00)
[2018-09-08] MEDS: OLANZapine ORAL DISINTEGRATING TAB 5MG PO PRN ×2 (09:17→13:24)
[2018-09-08] MEDS: lamoTRIgine 25 MG TAB PO SCH (10:01)
[2018-09-08] MEDS: QUEtiapine FUMARATE 50 MG TAB PO SCH (10:40)
--- NOTE | 2018-09-08 14:22 | MHIPN ---
DATE: 09/08/2018 SUBJECTIVE: "I had suicidal thoughts yesterday. I had to sleep close to the nursing station, but now I am feeling better". OBJECTIVE: She is a 37-year-old female with history of depression and borderline personality disorder wit history of multiple psychiatric hospitalizations who was admitted because of overdosing on pills in suicide attempt. Currently homeless. Continues to exhibit anxiety and drug seeking behaviors. Reported that Lamictal helped her. MENTAL STATUS EXAM: Casually dressed. Cooperative. Made good eye contact. Speech is coherent and goal directed. Mood is depressed. Affect is mood congruent. Denied any auditory or visual hallucinations. Denied any suicidal or homicidal ideas. Memory is intact. Insight and judgment are limited. She is alert and oriented to time, place and person. DIAGNOSES: Major depressive disorder, moderate, recurrent. Mild intellectual disability. Borderline personality disorder. PLAN: Continue Lamictal 25 mg once daily. Add Seroquel 50 mg in the a.m. and slowly taper off the Klonopin. She is currently on 0.25 mg twice daily.
[2018-09-08 18:00] VITALS: BP 116/65
[2018-09-08] MEDS: QUEtiapine FUMARATE 200 MG TAB PO SCH (20:55)
[2018-09-09] MEDS: LEVOTHYROXINE 75MCG TABLET (0.075MG) PO SCH (05:58)
[2018-09-09] MEDS: clonazePAM 0.5 MG TAB PO PRN (08:06)
[2018-09-09] MEDS: QUEtiapine FUMARATE 50 MG TAB PO SCH (08:07)
[2018-09-09] MEDS: lamoTRIgine 25 MG TAB PO SCH (08:07)
[2018-09-09] MEDS: ACETAMINOPHEN TAB 650MG DOSE (2X325MG) PO PRN (08:07)
[2018-09-09] MEDS ORDERED: OLANZapine ORAL DISINTEGRATING TAB 5MG PO ONE (09:45)
[2018-09-09] MEDS ORDERED: QUET1TAB9 PO (11:31)
[2018-09-09] MEDS ORDERED: QUET5TAB PO (11:31)
[2018-09-09] MEDS ORDERED: LAMI25TA PO (11:31)
[2018-09-09] MEDS ORDERED: LEVO75TA4 PO (11:31)
[2018-09-09] MEDS ORDERED: OLAN5ZYD PO (11:31)
--- NOTE | 2018-09-09 17:42 | MHDS ---
DATE OF ADMISSION: 09/03/2018 DATE OF DISCHARGE: 09/09/2018 DIAGNOSES: 1. Major depressive disorder, moderate, recurrent. 2. Mild intellectual disability. 3. Borderline personality disorder. IDENTIFYING DATA: She is a 37-year-old female with history of depression, borderline personality disorder, and multiple psychiatric hospitalizations who was admitted because of overdosing on pills as suicide attempt. COURSE IN THE HOSPITAL: The patient initially was depressed and had suicidal thoughts. She was placed on Seroquel which was titrated upwards. She also received individual, group and milieu therapy. She was encouraged to participate in activities. Psychoeducation was provided. The patient had drug seeking behavior. She complained of anxiety a lot of times. Since she was allergic to a lot medications, small doses of Klonopin were given initially which was tapered off subsequently. Her depression resolved. She slept better. Her isolation decreased. She became more pleasant and her suicidal and homicidal ideas resolved. Denied any side effect from the medication. She was placed on Lamictal which helped with her anxiety and mood. The treatment team evaluated her and agreed on her discharge. MENTAL STATUS EXAMINATION: Casually dressed, cooperative, good personal hygiene, pleasant, made good eye contact. Psychomotor activity is normal. Speech, rate, rhythm and volume are good. Mood is euthymic with appropriate affect. Thought Process: Linear and goal-directed, coherent. Thought Content: Denied any suicidal or homicidal ideas. Denied any delusions. There are no perceptual disturbances. Cognition is intact. Memory, immediate, remote and recent are good. Insight and judgment are good. VITAL SIGNS: Temperature 98.8, pulse is 113, respiratory rate is 16, blood pressure is 116/65. LABORATORY DATA: CBC within normal limits. CMP within normal limits. HCG is negative. TSH is within normal limits. Toxicology shows positive for benzodiazepine and opioids. The patient will be discharged. She reported that she will be staying in a hotel and go to [facility] to look for a living situation. She will be followed up at [facility]. DISCHARGE MEDICATIONS: - quetiapine 200 mg at night and 50 mg in the morning - lamotrigine 25 mg once daily - levothyroxine 75 mcg once daily
== END 2018-09-09 12:25 | disposition home or self-care (01) | DRG 751 ==
LOC: M ED 12:15 → EDBD 12:15 → M ED INP 21:09 → M PSY 22:00
PROVIDERS: ADMIT Psychiatry & Neurology Psychiatry; ATTEND Psychiatry & Neurology Psychiatry
DX: F33.1 Major depressive disorder, recurrent, moderate (principal); F60.3 Borderline personality disorder; F70 Mild intellectual disabilities; R45.851 Suicidal ideations; E03.9 Hypothyroidism, unspecified; Z88.0 Allergy status to penicillin; Z91.040 Latex allergy status; Z91.041 Radiographic dye allergy status; Z88.8 Allergy status to other drugs, medicaments and biological substances; Z91.038 Other insect allergy status; Z88.5 Allergy status to narcotic agent; Z79.899 Other long term (current) drug therapy

== ENCOUNTER 2018-09-09 18:10 | Emergency (ER) | payer MEDICAID, OTHER ==
[~2018-09-09] VITALS: Ht 160 cm; Wt 65.0 kg
[~2018-09-09 18:10] MED LIST changes: +D 50CAP PO; +EPIP0.3I2 IM; +LAMI25TA PO; +LEVO75TA4 PO; +QUET1TAB9 PO; +SUMA6KIT SC; +SYNT75TA PO; +TIZA2CAP PO; +VITA500079 PO
[2018-09-09] MEDS ORDERED: NALOXONE INJ 2 MG/2 ML SYRINGE (J2310) As Ordered ONE (18:13)
[2018-09-09] MEDS ORDERED: AMMONIA AROMATIC INHALANT (FLOOR STOCK) As Ordered ONE (18:13)
[2018-09-09] MEDS ORDERED: NALOXONE INJ 2 MG/2 ML SYRINGE (J2310) IV STA (18:36)
[2018-09-09 18:42] LABS: BASO % 0.5 % (0.0-1.0); EOS # 0.1 10^3/uL (0.0-0.50); EOS % 1.3 % (0.0-3.0); HEMATOCRIT 31.9 % (36.0-47.0); HEMOGLOBIN 10.6 g/dl (12.0-15.5); LYMPH # 2.1 10^3/uL (1.5-4.5); LYMPH % 24.8 % (24.0-44.0); MEAN CORPUSCULAR HEMOGLOBIN 29.4 pg (27.0-33.0); MEAN CORPUSCULAR HGB CONC 33.2 g/dl (32.0-36.5); MEAN CORPUSCULAR VOLUME 88.4 fl (80.0-96.0); MONO % 12.5 % (0.0-5.0); NEUTROPHILS # 4.9 10^3/uL (1.8-7.7); NEUTROPHILS % 59.6 % (36.0-66.0); PLATELET COUNT, AUTOMATED 230 10^3/uL (150-450); RED BLOOD COUNT 3.61 10^6/uL (4.00-5.40); WHITE BLOOD COUNT 8.3 10^3/uL (4.0-10.0)
[2018-09-09 18:50] LABS: HCG, SERUM QUALITATIVE NEGATIVE (NEGATIVE)
[2018-09-09 18:58] LABS: ACETAMINOPHEN LEVEL 6.9 UG/ML (10.0-30.0); ALBUMIN 3.3 GM/DL (3.2-5.2); ALT/SGPT 23 U/L (12-78); BILIRUBIN,DIRECT < 0.1 MG/DL (0.0-0.2); BILIRUBIN,TOTAL 0.4 MG/DL (0.2-1.0); BLOOD UREA NITROGEN 12 MG/DL (7-18); CALCIUM LEVEL 8.5 MG/DL (8.5-10.1); CARBON DIOXIDE LEVEL 25 MEQ/L (21-32); CHLORIDE LEVEL 106 MEQ/L (98-107); CPK CREATINE PHOSPHOKINASE 97 U/L (26-192); CREATININE FOR GFR 0.91 MG/DL (0.55-1.30); ETHYL ALCOHOL (ETHANOL) < 0.003 % (0.000-0.010); GLOMERULAR FILTRATION RATE > 60.0 (>60); GLUCOSE, FASTING 122 MG/DL (70-100); SALICYLATE LEVEL < 1.7 MG/DL (5.0-30.0); SODIUM LEVEL 139 MEQ/L (136-145); THYROID STIMULATING HORMONE 0.516 uIU/ML (0.358-3.740); TOTAL PROTEIN 6.6 GM/DL (6.4-8.2)
[2018-09-09] MEDS ORDERED: NS 1,000 ML IV ONE (19:15)
[2018-09-09 21:22] LABS: AMPHETAMINES LEVEL URINE NEGATIVE (NEGATIVE); BARBITURATES URINE NEGATIVE (NEGATIVE); BENZODIAZEPINES URINE NEGATIVE (NEGATIVE); CANNABINOIDS URINE NEGATIVE (NEGATIVE); COCAINE METABOLITE URINE NEGATIVE (NEGATIVE); METHADONE URINE NEGATIVE (NEGATIVE); OPIATES URINE NEGATIVE (NEGATIVE); PHENCYCLIDINE URINE NEGATIVE (NEGATIVE)
[2018-09-10 04:25] VITALS: BP 118/74
--- NOTE | 2018-09-10 08:29 | ECGEPIP ---
Stationary ECG Study [facility] - ED Test Date: 2018-09-09 Pat Name: NIURKA DENNEY Department: Room: - Gender: F Nurse First Aid: EVARISTO : 1980 Requested By: SHERON Mazariegos Order Number: [id number] Reading MD: Ramonita Villanueva Measurements Intervals [place] Rate: 83 P: 57 NH: 158 QRS: 24 QRSD: 88 T: 24 QT: 398 QTc: 469 Interpretive Statements SINUS RHYTHM SIMILAR 09/03/18 Electronically Signed On 09-10-2018 8:28:33 EDT by Ramonita Villanueva
== END 2018-09-10 04:27 ==
LOC: M ED 18:10
DX: T40.2X1A Poisoning by other opioids, accidental (unintentional), initial encounter (principal); T43.591A Poisoning by other antipsychotics and neuroleptics, accidental (unintentional), initial encounter; F32.9 Major depressive disorder, single episode, unspecified; R45.851 Suicidal ideations; Z72.0 Tobacco use; Z79.899 Other long term (current) drug therapy; Z88.7 Allergy status to serum and vaccine; Z88.8 Allergy status to other drugs, medicaments and biological substances; Z91.89 Other specified personal risk factors, not elsewhere classified; Z91.040 Latex allergy status; Z88.0 Allergy status to penicillin; Z91.030 Bee allergy status; Z88.5 Allergy status to narcotic agent
CPT/HCPCS: 36415; 80048; 80076; 80307; 82550; 84443; 84703; 85025; 93005; 93041; 94760; 96361; 96374; 99285; G0480; J2310

== ENCOUNTER 2018-09-15 17:57 | Emergency (ER) | payer OTHER ==
[~2018-09-15] VITALS: Ht 160 cm; Wt 65.9 kg
[2018-09-15 18:49] LABS: BASO # 0.1 10^3/uL (0.0-0.2); BASO % 0.7 % (0.0-1.0); EOS # 0.2 10^3/uL (0.0-0.50); EOS % 1.4 % (0.0-3.0); HEMATOCRIT 35.7 % (36.0-47.0); HEMOGLOBIN 11.8 g/dl (12.0-15.5); LYMPH # 2.5 10^3/uL (1.5-4.5); MEAN CORPUSCULAR HEMOGLOBIN 29.2 pg (27.0-33.0); MEAN CORPUSCULAR HGB CONC 33.1 g/dl (32.0-36.5); MEAN CORPUSCULAR VOLUME 88.4 fl (80.0-96.0); MONO # 1.1 10^3/uL (0.0-0.8); MONO % 10.1 % (0.0-5.0); NEUTROPHILS # 6.6 10^3/uL (1.8-7.7); NEUTROPHILS % 62.9 % (36.0-66.0); PLATELET COUNT, AUTOMATED 305 10^3/uL (150-450); RED BLOOD COUNT 4.04 10^6/uL (4.00-5.40); WHITE BLOOD COUNT 10.5 10^3/uL (4.0-10.0)
[2018-09-15] MEDS ORDERED: XALA0.007 OP (18:52)
[2018-09-15] MEDS ORDERED: TIZA2CAP PO (18:52)
[2018-09-15] MEDS ORDERED: CHLO25TA38 PO (18:52)
[2018-09-15] MEDS ORDERED: LITH300C PO (18:52)
[2018-09-15 19:10] LABS: ALBUMIN 3.7 GM/DL (3.2-5.2); ALT/SGPT 21 U/L (12-78); BILIRUBIN,DIRECT < 0.1 MG/DL (0.0-0.2); BILIRUBIN,TOTAL 0.4 MG/DL (0.2-1.0); BLOOD UREA NITROGEN 15 MG/DL (7-18); CALCIUM LEVEL 9.1 MG/DL (8.5-10.1); CARBON DIOXIDE LEVEL 29 MEQ/L (21-32); CHLORIDE LEVEL 106 MEQ/L (98-107); CREATININE FOR GFR 1.03 MG/DL (0.55-1.30); GLOMERULAR FILTRATION RATE > 60.0 (>60); GLUCOSE, FASTING 104 MG/DL (70-100); LIPASE 246 U/L (73-393); POTASSIUM SERUM 3.5 MEQ/L (3.5-5.1); SODIUM LEVEL 140 MEQ/L (136-145); TOTAL PROTEIN 7.5 GM/DL (6.4-8.2)
[2018-09-15] MEDS ORDERED: NS 1,000 ML IV SCH (19:39)
[2018-09-15] MEDS ORDERED: PANTOPRAZOLE 40MG INJ (PROTONIX) (C9113) IV ONE (19:45)
[2018-09-15] MEDS ORDERED: NORCO, ANEXSIA 5/325MG TABLET (HYDROcodone/ACETAMINOPHEN) PO ONE (20:00)
[2018-09-15 20:07] LABS: HCG, SERUM QUALITATIVE NEGATIVE (NEGATIVE)
[2018-09-15 20:18] LABS: INR 0.93; PROTHROMBIN TIME 12.6 SECONDS (12.1-14.4)
--- NOTE | 2018-09-15 20:49 | REPVR ---
EXAM: CT Abdomen and Pelvis Without Contrast EXAM DATE/TIME: 09/15/2018 8:09 PM CLINICAL HISTORY: 37 years old, female; Pain; Abdominal pain; Generalized; Additional info: Abd pain TECHNIQUE: Imaging protocol: Axial computed tomography images of the abdomen and pelvis without contrast. Coronal and sagittal reformatted images were created and reviewed. Radiation optimization: All CT scans at this facility use at least one of these dose optimization techniques: automated exposure control; mA and/or kV adjustment per patient size (includes targeted exams where dose is matched to clinical indication); or iterative reconstruction. COMPARISON: CT ABD/PEL W/PO CONTRAST ONLY 09/18/2016 6:01 PM FINDINGS: Lower thorax: Small foci of pleural thickening both lung bases. ABDOMEN: Liver: Normal. No mass. Gallbladder and bile ducts: Stop cholecystectomy. Pancreas: Normal. No ductal dilation. Spleen: Normal. No splenomegaly. Adrenals: Normal. No mass. Kidneys and ureters: Nonobstructive renal calculi left kidney. Stomach and bowel: There is increased feces throughout the colon consistent with constipation. Appendix: No evidence of appendicitis. PELVIS: Bladder: Unremarkable as visualized. Reproductive: Unremarkable as visualized. ABDOMEN and PELVIS: Intraperitoneal space: Normal. No free air. No significant fluid collection. Bones/joints: Dextroscoliosis. Soft tissues: Unremarkable. Vasculature: Normal. No abdominal aortic aneurysm. Lymph nodes: Normal. No enlarged lymph nodes. IMPRESSION: There is increased feces throughout the colon consistent with constipation. Nonobstructive calculus left kidney. Otherwise unremarkable. Electronically signed by: Faustino Solorzano On 09/15/2018 20:48:41 PM
[2018-09-15] MEDS ORDERED: CIPROFLOXACIN 500 MG TAB PO ONE (21:00)
[2018-09-15] MEDS ORDERED: CIPR-249 PO (21:02)
[2018-09-15] MEDS ORDERED: MIRA3350 PO (21:02)
[2018-09-15 21:52] VITALS: BP 119/75
== END 2018-09-15 21:54 | disposition home or self-care (01) ==
LOC: M ED 17:57
DX: N39.0 Urinary tract infection, site not specified (principal); K59.00 Constipation, unspecified; I10 Essential (primary) hypertension; Z87.442 Personal history of urinary calculi; Z79.899 Other long term (current) drug therapy; Z88.0 Allergy status to penicillin; Z88.5 Allergy status to narcotic agent; Z88.7 Allergy status to serum and vaccine; Z88.8 Allergy status to other drugs, medicaments and biological substances; Z91.030 Bee allergy status; Z91.040 Latex allergy status; Z91.041 Radiographic dye allergy status; F17.210 Nicotine dependence, cigarettes, uncomplicated
CPT/HCPCS: 36415; 74176; 80048; 80076; 81001; 83690; 84703; 85025; 85610; 87086; 96361; 96374; 99284; C9113

== ENCOUNTER 2020-08-11 20:51 | Emergency (ER) | payer OTHER, SELFPAY ==
[~2020-08-11] VITALS: Ht 160 cm; Wt 78.2 kg
[~2020-08-11 20:51] MED LIST changes: +CHLO25TA38 PO; +CIPR-249 PO; -DIPH25CA PO; +DIPH25CA32 PO; -LIDO1SOL8 PO; +LIDO2SOL17 PO; +LITH300C PO; +MIRA3350 PO; -QUET1TAB9 PO; +QUET200T2 PO; +QUET50TA3 PO; -QUET5TAB PO; -TRAZ10TA PO; +TRAZ1TAB12 PO; +XALA0.007 OP
[2020-08-11 20:52] VITALS: BP 120/74
[2020-08-11] MEDS ORDERED: ACETAMINOPHEN TAB 650MG DOSE (2X325MG) PO ONE (21:10)
[2020-08-11 21:39] LABS: URINE PREG TEST NEGATIVE (NEGATIVE)
== END 2020-08-11 22:35 | disposition left against medical advice (07) ==
LOC: M ED 20:51
DX: R35.0 Frequency of micturition (principal); Z53.9 Procedure and treatment not carried out, unspecified reason; I10 Essential (primary) hypertension; J45.909 Unspecified asthma, uncomplicated; F33.9 Major depressive disorder, recurrent, unspecified; F41.9 Anxiety disorder, unspecified; Z88.0 Allergy status to penicillin; Z88.1 Allergy status to other antibiotic agents; Z88.6 Allergy status to analgesic agent; Z88.8 Allergy status to other drugs, medicaments and biological substances; Z91.041 Radiographic dye allergy status; Z91.030 Bee allergy status; Z88.7 Allergy status to serum and vaccine; Z79.899 Other long term (current) drug therapy